=== PATIENT | male | born 1955 | race Caucasian/White ===

== ENCOUNTER 2020-01-30 08:22 | Emergency (ER) | payer MEDICAID ==
[~2020-01-30] VITALS: Ht 172.7 cm; Wt 79.4 kg
[2020-01-30 08:22] VITALS: BP_SYST 180
--- NOTE | 2020-01-30 08:22 | NUR ---
placed in bed 2, traiged at bedside, bib sq 154 from home
--- NOTE | 2020-01-30 08:22 | NUR ---
Dr. Edmondson at bedside examining pt
[2020-01-30] MEDS ORDERED: ROCURONIUM BROMIDE 10 MG/ML (ZEMURON) IV ONE (08:23)
[2020-01-30] MEDS ORDERED: ETOMIDATE 20 MG/ 10 ML VIAL (AMIDATE) IVP ONE (08:23)
--- NOTE | 2020-01-30 08:25 | NUR ---
Pt bib EMS from home with c/o dizziness and diarrhea x3 days. Reports this is an ongoing problem and he's been trying to get an MRI through his primary. V/S stable, pt is afebrile. Currently resting in bed, will continue to monitor.
[2020-01-30] MEDS ORDERED: NACL 0.9% 1,000 ML IV ONE ×2 (08:45→11:45)
[2020-01-30] MEDS ORDERED: MECLIZINE HCL 25 MG TABLET (ANITVERT) PO ONE (08:45)
--- NOTE | 2020-01-30 08:55 | NUR ---
Lab at bedside for blood draw,
[2020-01-30 09:06] LABS: BASOPHILS % (AUTO) 0.7 % (0.0-2.0); EOSINOPHILS # (AUTO) 0.1 K/uL (0.0-0.4); EOSINOPHILS % (AUTO) 1.2 % (0.0-4.0); HEMATOCRIT 40.6 % (36-54); HEMOGLOBIN 13.8 g/dL (14.0-18.0); LYMPHOCYTES # (AUTO) 0.8 K/uL (1.0-5.5); LYMPHOCYTES % (AUTO) 18.2 % (20.5-51.5); MEAN CORPUSCULAR HEMOGLOBIN 30 pg (27-31); MEAN CORPUSCULAR HGB CONC 34 % (32-36); MEAN CORPUSCULAR VOLUME 88 fL (79.0-98.0); MONOCYTES # (AUTO) 0.3 K/uL (0.0-1.0); MONOCYTES % (AUTO) 6.3 % (1.7-9.3); NEUTROPHILS # (AUTO) 3.4 K/uL (1.8-7.7); NEUTROPHILS % (AUTO) 73.6 % (40.0-70.0); PLATELET COUNT (AUTO) 162 K/uL (130-430); WHITE BLOOD COUNT (AUTO) 4.7 K/uL (4.8-10.8)
[2020-01-30 09:25] LABS: CALCIUM 8.9 mg/dL (8.4-11.0); CREATININE 0.66 mg/dL (0.55-1.30); POTASSIUM 3.7 mmol/L (3.5-5.1)
[2020-01-30 09:31] LABS: ALBUMIN 3.9 g/dL (3.4-4.8)
--- NOTE | 2020-01-30 09:48 | NUR ---
CT consent signed by patient.
--- NOTE | 2020-01-30 09:51 | NUR ---
Radiology at bedside for CXR.
[2020-01-30] MEDS ORDERED: IOHEXOL 350 mgI/mL, 150 ML INFUS..BTL IV ONE (10:03)
[2020-01-30] MEDS ORDERED: ONDANSETRON HCL 4 MG/2 ML VIAL IVP ONE (10:30)
--- NOTE | 2020-01-30 11:24 | NUR ---
Care of patient endorsed to PAVEL Erazo. Pt currently in CT.
--- NOTE | 2020-01-30 11:30 | NUR ---
NICKO TO ASSUME CARE. PLACED IN ADULT BRIEF. LOOSE STOOLS, LINEN CHANGE
--- NOTE | 2020-01-30 11:46 | NUR ---
DR JOSE IN TO ASSESS
--- NOTE | 2020-01-30 12:28 | NUR ---
Notified ED Admitting of pt admission/transfer. Will contact assistant store manager sales.
[2020-01-30] MEDS ORDERED: metroNIDAZOLE 500 MG TABLET PO ONE (12:30)
[2020-01-30] MEDS ORDERED: CIPROFLOXACIN HCL 500 MG TABLET PO ONE (12:30)
[2020-01-30] MEDS ORDERED: CIPROFLOXACIN HCL 500 MG TABLET ONE (13:45)
--- NOTE | 2020-01-30 13:46 | NUR ---
TOLERATING PO WELL. RESP UNLABORED, SKIN WARM AND DRY
[2020-01-30 15:30] VITALS: BP_SYST 141
--- NOTE | 2020-01-30 15:30 | NUR ---
Patient given written and verbal discharge instructions and verbalizes understanding. ER MD discussed with patient the results and treatment provided. Patient in stable condition. ID arm band removed. IV catheter removed intact and dressing applied, no active bleeding. Patient educated on pain management and to follow up with PMD. Pain Scale 0/10 Opportunity for questions provided and answered.
--- NOTE | 2020-01-31 15:47 | NUR ---
SPOKE WITH PT. PER DR. COLLINS REQUEST TO ADVISED PT TO F/U WITH NEUROSURGEON GABRIEL PT STATES HE WILL F/U WITH HIS NEUROLOGIST I ADVISED HIM TO SEEK TX GABRIEL .
== END 2020-01-30 15:30 | disposition home or self-care (01) ==
LOC: SED 08:22
DX: R42 Dizziness and giddiness (principal); E11.9 Type 2 diabetes mellitus without complications; R11.2 Nausea with vomiting, unspecified
CPT/HCPCS: 36415; 36600; 70450; 70496; 70498; 71045; 76376; 80053; 82803; 84484; 85025; 93005; 96361; 96374; 99285; J2405; J3490; J7030; J8597; Q9967

== ENCOUNTER 2021-07-17 23:28 | Inpatient (IN) | payer MEDICAID ==
[~2021-07-17] VITALS: Ht 175.3 cm; Wt 72.6 kg
[2021-07-17 23:30] VITALS: BP_SYST 169
[2021-07-18] MEDS ORDERED: ASPIRIN 81 MG TAB.CHEW PO ONE
[2021-07-18] MEDS ORDERED: CALC215T PO (00:10)
[2021-07-18] MEDS ORDERED: METF-379 PO (00:10)
[2021-07-18] MEDS ORDERED: NOVOLOG SUBCUT (00:10)
[2021-07-18] MEDS ORDERED: INSU100V11 SQ (00:10)
[2021-07-18] MEDS ORDERED: SSNOVOLOG SUBCUT (00:10)
[2021-07-18] MEDS ORDERED: FERROUS SULFATE PO (00:10)
[2021-07-18] MEDS ORDERED: TRAM50TA PO (00:10)
[2021-07-18] MEDS ORDERED: BENZ100C92 PO (00:10)
[2021-07-18] MEDS ORDERED: HYDR-3917 PO (00:10)
[2021-07-18] MEDS ORDERED: ALPR0.5T PO (00:10)
--- NOTE | 2021-07-18 00:15 | NUR ---
Placed in room 06 . Placed on satellite project site monitor, blood pressure machine and pulse oximeter. To gown for exam. Side rails up. Report given to PAVEL COOPER
[2021-07-18 00:24] LABS: EOSINOPHILS % (AUTO) 0.1 % (0.0-4.0); LYMPHOCYTES # (AUTO) 0.4 K/uL (1.0-5.5); MONOCYTES # (AUTO) 0.9 K/uL (0.0-1.0)
[2021-07-18 00:30] LABS: ANION GAP 10 (5-15); CALCIUM 8.3 mg/dL (8.4-11.0); CHLORIDE 101 mmol/L (98-107); CREATININE 0.89 mg/dL (0.55-1.30); GLUCOSE 208 mg/dL (70-99); POTASSIUM 4.3 mmol/L (3.5-5.1); SODIUM SERUM 137 mmol/L (136-145); UREA NITROGEN, BLOOD 26 mg/dL (8-21)
--- NOTE | 2021-07-18 00:30 | NUR ---
PT BIBA from home with c/o with SOB that started at around noon. Pt denies any chest pain, and N/V. Pt arrived on 10 NRB with O2 at 98%, P:104, and tachypnic. Pt is A&O x 4, and following simple commands. PT has a history of DM, anxiety, cellulitis, HTN, and UTI. Pt has diabetic ulcers on both legs. Safety precautions in place and pt connected to monitor.
[2021-07-18 00:31] LABS: BASOPHILS % (AUTO) 0.3 % (0.0-2.0)
[2021-07-18 00:35] LABS: BASOPHILS # (AUTO) 0.1 K/uL (0.0-0.2); HEMATOCRIT 27.8 % (36-54); LYMPHOCYTES % (AUTO) 2.7 % (20.5-51.5); MEAN CORPUSCULAR HEMOGLOBIN 26 pg (27-31); MEAN CORPUSCULAR HGB CONC 33 % (32-36); MEAN CORPUSCULAR VOLUME 79 fL (79.0-98.0); MONOCYTES % (AUTO) 6.2 % (1.7-9.3); NEUTROPHILS # (AUTO) 13.6 K/uL (1.8-7.7); NEUTROPHILS % (AUTO) 90.7 % (40.0-70.0); PLATELET COUNT (AUTO) 275 K/uL (130-430); RED BLOOD CELL COUNT(AUTO) 3.51 MIL/uL (4.2-6.2); RED CELL DISTRIBUTION WIDTH 15.7 % (9.0-15.0)
[2021-07-18 00:39] LABS: ALANINE AMINOTRANSFERASE 19 U/L (12-78); ALBUMIN 2.4 g/dL (3.4-4.8); ASPARTATE AMINOTRANSFERASE 24 U/L (10-37); TOTAL BILIRUBIN 0.3 mg/dL (0.0-1.0)
[2021-07-18 00:45] LABS: GFR AFRICAN AMERICAN 111 mL/min (>90)
[2021-07-18 00:55] LABS: PROTHROMBIN TIME 9.7 SECS (9.5-12.5)
[2021-07-18] MEDS ORDERED: PIPERACILLIN/TAZO 3.375 GM in NS 50 ML IV ONE (01:15)
[2021-07-18] MEDS ORDERED: AZITHROMYCIN 500 MG in NS 250 ML IV ONE (01:15)
[2021-07-18] MEDS ORDERED: ACETAMINOPHEN 500 MG TABLET PO ONE (01:15)
[2021-07-18] MEDS ORDERED: AZITHROMYCIN 500 MG/VIAL (ZITHROMAX) IV ONE ×2 (01:33→02:23)
--- NOTE | 2021-07-18 01:37 | NUR ---
PT REFUSING TO HAVE IV INSERTED WITH IV ANTIBIOTICS, DR TIMMONS INFORMED. DR TIMMONS AT BEDSIDE AND SPEAKING WITH PT ABOUT THE CONSEQUENCES OF GOING AMA. PT BEING VERY ARGUMENATIVE AND NOT ALLOWING US TO GIVE HIM DETAILS.
[2021-07-18] MEDS ORDERED: PIPERACILLIN/TAZOBACTAM 3.375 GM/VIAL (ZOSYN) IV ONE (02:08)
[2021-07-18 02:37] LABS: BILIRUBIN,URINE NEGATIVE (NEGATIVE); BLOOD, URINE 1+ (NEGATIVE); CLARITY/URINE CLEAR (CLEAR); COLOR,URINE YELLOW (YELLOW); GLUCOSE,URINE NEGATIVE (NEGATIVE); KETONES,URINE NEGATIVE (NEGATIVE); LEUKOCYTE ESTERASE ,URINE NEGATIVE (NEGATIVE); NITRITE, URINE NEGATIVE (NEGATIVE); PH,URINE 5.5 (5.0-8.0); PROTEIN URINE 3+ (NEGATIVE); UROBILINOGEN,URINE 0.2 (0.2-1.0)
[2021-07-18 02:51] LABS: BACTERIA,URINE MODERATE /HPF (None Seen); WBC,URINE 0-3 /HPF (0-3)
--- NOTE | 2021-07-18 04:41 | NUR ---
Pt in bed resting with eyes closed. No signs of resp distress. Pt O2 sat 94% on NC at 4L
--- NOTE | 2021-07-18 04:51 | NUR ---
Admit bed requested Patient will be admitted to care of Dr.A MARQUEZ. Admitted to TELE unit. Diagnosis PNA,PLEURAL EFFUSION Inpatient (Yes or No) YES Observation (Yes or No) NO Orientation concerns or request close to nursing station (Yes or No) NO Covid Status NEGATIVE On vent or bipap NO Isolation requirements NO Needs a sitter NO From Home (Yes or if No enter name of facility) [facility] Requires Dialysis (Yes or No) NO Med Rec Completed (Yes of No) YES
--- NOTE | 2021-07-18 05:05 | NUR ---
Urine collected and walked over to lab.
--- NOTE | 2021-07-18 07:21 | NUR ---
Report received from Mackenzie ZHAO to assume care of patient
--- NOTE | 2021-07-18 08:00 | NUR ---
Pt alert and oriented, hard of hearing. Resting in bed. NAD noted. VSS on c d still operator. Awaiting tele bed placement. Informed of treatment plan moving forward. Understanding verbalized.
--- NOTE | 2021-07-18 08:26 | NUR ---
CONSULTATION PAGED REASON FOR CONSULTATION:PNEUMONIA PLEURAL FUSION WAS CONSULT CALLED?Y PERSON WHO WAS NOTIFIED:DR.ZAIDI GARCIA CONSULTING PHYSICIAN:NICKOLAS PERALES FREIGHT BRAKE OPERATOR SPECIALTY:PULMONARY FREIGHT BRAKE OPERATOR PHONE NUMBER:[phone] REQUESTING PHYSICIAN:DEJON DUARTE
--- NOTE | 2021-07-18 08:35 | NUR ---
Pt transported to [facility]A via [facility] with RN. Report given at bedside.
[2021-07-18 10:20] VITALS: BP_SYST 125
[2021-07-18] MEDS ORDERED: ONDANSETRON HCL 4 MG/2 ML VIAL IVP PRN (11:15)
[2021-07-18] MEDS ORDERED: NALOXONE HCL 0.4 MG/ML AMP (NARCAN) IVP PRN (11:15)
[2021-07-18] MEDS ORDERED: ACETAMINOPHEN 325 MG TABLET PO PRN (11:15)
[2021-07-18] MEDS ORDERED: HYDROcodone/ACETAMIN 5-325 MG TAB (NORCO/ VICODIN) PO PRN (11:15)
[2021-07-18] MEDS ORDERED: ALPRAZolam 0.25 MG TABLET PO PRN (11:15)
[2021-07-18] MEDS ORDERED: IPRATROPIUM BROM 0.5 MG/2.5 ML VIAL.NEB (ATROVENT) INH PRN (11:15)
[2021-07-18] MEDS ORDERED: traMADol HCL HCL 50 MG TABLET (ULTRAM) PO PRN (11:15)
[2021-07-18] MEDS ORDERED: ALBUTEROL SULFATE 0.083% 2.5 MG/3 ML VIAL.NEB INH PRN (11:15)
--- NOTE | 2021-07-18 11:20 | NUR ---
CONSULTATION PAGED REASON FOR CONSULTATION:ELEVATED TROPONIN WAS CONSULT CALLED?Y PERSON WHO WAS NOTIFIED:DWIGHT CONSULTING PHYSICIAN:PAULINO DUARTE BAND SINGER SPECIALTY:CARDIO BAND SINGER PHONE NUMBER:[phone] REQUESTING PHYSICIAN:DEJON DUARTE
--- NOTE | 2021-07-18 11:31 | NUR ---
CONSULTATION PAGED REASON FOR CONSULTATION:PNEUMONIA WAS CONSULT CALLED?Y PERSON WHO WAS NOTIFIED:JURGEN CONSULTING PHYSICIAN:LAUREL SNIDER OPTICAL GOODS WORKER SPECIALTY:INFECTIOUS DISEASE OPTICAL GOODS WORKER PHONE NUMBER:[phone] REQUESTING PHYSICIAN:DEJON DUARTE
[2021-07-18] MEDS ORDERED: DEXTROSE 50%-WATER 50 ML DISP.SYRIN IVP PRN (11:45)
[2021-07-18] MEDS ORDERED: D5W 1,000 ML IV PRN (11:45)
[2021-07-18] MEDS ORDERED: CALCIUM CARBONATE 500 MG/ TAB.CHEW PO PRN (11:45)
[2021-07-18] MEDS ORDERED: GLUCOSE (DEXTROSE) ORAL GEL -Adults PO PRN (11:45)
[2021-07-18] MEDS ORDERED: metFORMIN HCL 500 MG TABLET PO SCH ×3 (12:00→18:00)
[2021-07-18] MEDS: PIPERACILLIN/TAZO 3.375/DEX-IS 50 ML IV SCH ×4 (12:00→23:24)
[2021-07-18 12:24] VITALS: BP_SYST 130
[2021-07-18] MEDS: INSULIN REGULAR, HUMAN 100 UNITS/ML, 10 ML VIAL (humuLIN R) SUBCUT PRN (12:49)
[2021-07-18] MEDS ORDERED: NORMAL SALINE 5 ML DISP.SYRIN IVF SCH (14:00)
[2021-07-18] MEDS ORDERED: BENZONATATE 100 MG CAPSULE (TESSALON) PO PRN (14:00)
[2021-07-18] MEDS: NORMAL SALINE 5 ML DISP.SYRIN IVF SCH ×2 (14:01→21:14)
[2021-07-18 14:53] VITALS: BP_SYST 132
[2021-07-18] MEDS ORDERED: BALSAM PERU/CASTOR OIL 56.7 GM OINT...G. TP ONE (15:30)
--- NOTE | 2021-07-18 16:00 | NUR ---
WOUND EVALUATION: Wound Consult received from Dr. Hector Tristan. Thank you, Dr. Tristan, for the consult. Patient received in a Ricci Bed with an IsoFlex IRENE mattress, awake, alert, and oriented. Patient is unable to turn in bed independently. Yunier Score is a 15. Past Medical History: Diabetes Mellitus, Chronic Lower Extremity Ulcers. Admitted for shortness of breath, along with Bilateral Lower Extremity Edema and Scrotal Edema for the past few weeks. Recent Labs: WBC 15.0, RBC 3.51, hemoglobin 9.0, hematocrit 27.8, BUN 26, creatinine 0.89, GFR 91, glucose 208, POC glucose 157, calcium 8.3, BNP 302, albumin 2.4, PTT 23.9, D-dimer 911. Microbiology: Blood culture results x2 in progress. Urine culture results in progress. MRSA screen results positive. Intrinsic factors that delay wound healing: Diabetes Mellitus, Hypoalbuminemia, chronic vascular ulcers and edema of bilateral lower extremities. Extrinsic factors that delay wound healing: Decreased mobility. Wound Assessment: 1. Right Mid Anterior Lower Extremity, Inferior to Knee: Venous ulcer with possible arterial involvement, present on admission. Wound bed has 80% yellow slough, 20% pink tissue. Mild odor, scant yellow sanguineous drainage. Periwound intact. Extremity inferior to knee is cold to the touch and has 4+ pitting firm edema. Wound measures 8.7 cm x 6.5 cm x 0.3 cm. 2. Right Mid Anterior Lateral Lower Extremity, Inferior to Site 1: Venous ulcer with possible arterial involvement, present on admission. Wound bed has 80% yellow slough, 15% pink tissue, 5% red tissue. Moderate odor, moderate yellow drainage. Periwound intact. Extremity inferior to knee is cold to the touch and has 4+ pitting firm edema. Wound measures 11.0 cm x 18.0 cm x 0.4 cm. Recommend: Cleanse wounds with normal saline. Apply moisture barrier cream to alexis-wounds. Apply Venelex ointment to wound beds. Cover wounds with non-adhesive foam dressings. Place ABD pad on wound site 2. Wrap with Negar wrap. Wrap extremity with elastic bandage from just above toes to just below knee with 50% overlap. Do not apply too much pressure. Perform wound care daily, and as needed for dressing soiling or dislodgement. 3. Right Dorsal Foot: Chronic Vascular Ulcer, present on admission. Wound bed has 100% black eschar. No odor, no drainage. Periwound intact. Foot is cold to the touch and has mild non-pitting edema. Wound measures 0.8 cm x 1.9 cm. 4. Right Anterior Medial Hallux: Chronic wound, present on admission. Wound bed has 90% yellow eschar, 10% black eschar. No odor, no drainage. Periwound intact. Foot is cold to the touch and has mild non-pitting edema. Wound measures 0.7 cm x 0.9 cm. Recommend: [place] wound sites with Betadine. Allow to air dry. Cover sites with adhesive 4 x 4 dressings. Include these sites with the Negar wrap and elastic bandage from Wound sites 1 and 2. 5. Left Posterior Heel: Chronic unstageable pressure ulcer, present on admission. Wound bed has 100% yellow eschar. No odor, no drainage. Periwound intact. Foot and extremity inferior to knee are cold to the touch. Foot is cold to the touch and has mild non-pitting edema. Wound measures 0.5 cm x 0.8 cm. 6. Left Anterior Medial Hallux: Chronic vascular ulcer, present on admission. Wound bed has 100% black eschar. No odor, no drainage. Periwound intact. Surrounding tissue has nonblanchable red tissue. Foot is cold to the touch and has mild non-pitting edema. Wound measures 0.5 cm x 0.7 cm. 7. Left Anterior Second Toe: Chronic vascular ulcer, present on admission. Wound bed has 100% brown eschar. No odor, no drainage. Periwound intact. Foot is cold to the touch and has mild non-pitting edema. Wound measures 0.5 cm x 0.4 cm. 8. Left Anterior Second Toe, Distal to Site 7: Chronic vascular ulcer, present on admission. Wound bed has 100% brown eschar. No odor, no drainage. Periwound intact. Foot is cold to the touch and has mild non-pitting edema. Wound measures 0.3 cm x 0.3 cm. Recommend: [place] wound beds with Betadine. Allow to air dry. Cover sites with adhesive 4 x 4 dressings. Wrap with Negar wrap. Wrap extremity with elastic bandage from just above toes to just below knee with 50% overlap. Do not apply too much pressure. Perform wound care daily, and as needed for dressing soiling or dislodgement. Also recommend: Encourage and assist patient as needed with repositioning every 2 hours with pillow support and off-load pressure areas with pillows for pressure re-distribution. Offload, elevate and float bilateral heels with pillows. Elevate bilateral lower extremities as tolerated. Perform skin care and monitor skin integrity Q shift. Use moisture barrier cream on buttocks and other moisture susceptible areas QID and as needed for soiling. Place patient on a low air-loss mattress.
[2021-07-18 16:19] VITALS: BP_SYST 148
[2021-07-18] MEDS: FERROUS SULFATE 325 MG TABLET.DR PO SCH (17:06)
--- NOTE | 2021-07-18 17:28 | NUR ---
Patient was transferred from ED around 08:30. patient was stable, vitals taken, patient situated to room. 4 eye skin check done with charge Nurse. Patient has RLE venous/diabetic ulcers, pictures taken, seen by wound care nurse, wound care orders places and followed.
--- NOTE | 2021-07-18 19:58 | NUR ---
CARLEEN BANKS I SPOKE WITH ANASTASIIA
[2021-07-18 20:00] VITALS: BP_SYST 150
[2021-07-18] MEDS: INSULIN GLARGINE 100 UNITS/ML 10 ML VIAL SUBCUT SCH (21:13)
[2021-07-19] VITALS (30 sets, daily range): BP systolic 110–166
--- NOTE | 2021-07-19 02:38 | NUR ---
pLACED CALL TO FLOYD MEDINA, PATIENT DAUGHTER TO NOTIFY OF PATIENT CONDITION AND TRANSFER TO ICU. NO ANSWER. MESSAGE LEFT TO CALL [phone] THE UTILITY PIPE LAYER PHONE.
--- NOTE | 2021-07-19 03:02 | NUR ---
0204 -0245 AM : USABILITY ENGINEER CALLED BECAUSE HEART RATE WAS DROP, CHECKED THE PATIENT, PT WAS FOUND UNRESPONSIVE, PALED AND SATING IN 75%, CALLED CODE BLUE, CALLED THE DOCTOR AND LEFT MESSAGE TO FAMILY. PT WAS TRANSFERRED TO ICU.
--- NOTE | 2021-07-19 03:05 | NUR ---
ICU ADMIT Patient transferred from tele after code blue. Patient on the vent, ST on monitor. RT at bedside. Patient came with blanket from home. Safety precautions in place, report given bedside. Will continue to monitor.
--- NOTE | 2021-07-19 03:40 | NUR ---
PAGE TO DR. OAKLEY.
--- NOTE | 2021-07-19 04:10 | NUR ---
SECOND PAGE TO DR. CELE REYNOSO MADE AWARE OF PATIENTS CURRENT STATUS. NEW ORDERS GIVEN, WILL CARRY OUT.
[2021-07-19] MEDS ORDERED: NACL 0.9% 1,000 ML IV SCH (04:15)
[2021-07-19] MEDS: PROPOFOL DRIP 100 ML IV PRN ×2 (04:46→10:52)
[2021-07-19 05:36] LABS: RED CELL DISTRIBUTION WIDTH 15.4 % (9.0-15.0)
[2021-07-19 05:47] LABS: BASOPHILS % (AUTO) 0.2 % (0.0-2.0); LYMPHOCYTES # (AUTO) 0.3 K/uL (1.0-5.5); LYMPHOCYTES % (AUTO) 2.6 % (20.5-51.5); MEAN CORPUSCULAR HEMOGLOBIN 26 pg (27-31); MEAN CORPUSCULAR HGB CONC 33 % (32-36); MEAN CORPUSCULAR VOLUME 79 fL (79.0-98.0); MONOCYTES # (AUTO) 1.1 K/uL (0.0-1.0); MONOCYTES % (AUTO) 7.9 % (1.7-9.3); NEUTROPHILS # (AUTO) 11.8 K/uL (1.8-7.7); NEUTROPHILS % (AUTO) 89.3 % (40.0-70.0); PLATELET COUNT (AUTO) 171 K/uL (130-430); RED BLOOD CELL COUNT(AUTO) 2.72 MIL/uL (4.2-6.2); WHITE BLOOD COUNT (AUTO) 13.2 K/uL (4.8-10.8)
[2021-07-19 05:51] LABS: C-REACTIVE PROTEIN QUANT 17.6 mg/dL (0-0.5); CREATININE 1.51 mg/dL (0.55-1.30); PHOSPHORUS 6.1 mg/dL (2.7-4.5); POTASSIUM 4.6 mmol/L (3.5-5.1)
[2021-07-19 05:52] LABS: HEMATOCRIT 21.4 % (36-54)
[2021-07-19] MEDS: NORMAL SALINE 5 ML DISP.SYRIN IVF SCH ×3 (06:00→23:12)
[2021-07-19] MEDS: PIPERACILLIN/TAZO 3.375/DEX-IS 50 ML IV SCH ×2 (06:32→13:55)
--- NOTE | 2021-07-19 06:50 | NUR ---
DR. OAKLEY HERE TO SEE PATIENT.
--- NOTE | 2021-07-19 07:12 | NUR ---
PATIENTS DAUGHTER HERE TO SEE PATIENT. UPDATE GIVEN.
[2021-07-19] MEDS ORDERED: NS 1000 ML IV.SOLN IV ONE (07:15)
[2021-07-19] MEDS ORDERED: SODIUM BICARBONATE 8.4% JECT 50 MEQ/50 ML SYRINGE ONE (07:15)
[2021-07-19] MEDS ORDERED: EPINEPHrine JECT 0.1 MG/ML SYR ONE (07:15)
--- NOTE | 2021-07-19 07:15 | NUR ---
ENDORSEMENT PATIENT CARE ENDORSED TO PAVEL PEREZ USING NURSING SBAR.
[2021-07-19] MEDS ORDERED: PANTOPRAZOLE SODIUM 40 MG/VIAL (PROTONIX) IVP ONE (07:45)
[2021-07-19] MEDS ORDERED: FUROSEMIDE 40 MG/4 ML VIAL IVP ONE (07:45)
[2021-07-19] MEDS: FERROUS SULFATE 325 MG TABLET.DR PO SCH ×2 (08:00→17:34)
[2021-07-19] MEDS ORDERED: FUROSEMIDE 40 MG/4 ML VIAL IVP SCH (09:00)
[2021-07-19] MEDS: PANTOPRAZOLE SODIUM 40 MG/VIAL (PROTONIX) IVP SCH ×2 (09:00→21:32)
[2021-07-19] MEDS: BALSAM PERU/CASTOR OIL 56.7 GM OINT...G. TP SCH ×2 (09:00→15:41)
--- NOTE | 2021-07-19 09:18 | NUR ---
PAGECLOTILDE BLOUNT ORDERING PHY: DR. MARQUEZ REASON FOR CONSULT: SCROTAL EDEMA DIALED: [phone] SPOKE TO: IMELDA
[2021-07-19 09:29] LABS: ERYTHROCYTE SEDIMENTATION RATE 64 MM/HR (0-15)
--- NOTE | 2021-07-19 09:55 | NUR ---
RT NOTES FIO2 TO 0.40. WILL MONITOR PT.
--- NOTE | 2021-07-19 10:00 | NUR ---
patient daughter( araceli) at the bedside, updated patient current condition and poc. able to speak with pulmo ( Julito) and internal medicine ( Azalea )
--- NOTE | 2021-07-19 11:30 | NUR ---
[place] CATH: KALLI JANG ( UROLOGIST)PLACED # 16 FR coude [place] catheter with 10 cc bulb inserted with use of sterile technique. Bulb inflated with 10 cc sterile water. Immediate return of 1900 cc dark yellow urine noted. Bedside drainage bag placed below level of bladder. Urine sample collected and sent to lab . Pt tolerated procedure well. Addendum: 07/19/21 at 1248 by Max Melendez RN # 18 english coude catheter.
--- NOTE | 2021-07-19 11:39 | NUR ---
NOTIFIED OF CONSULT ORDERING PHY: DR. MARQUEZ REASON FOR CONSULT: ADRIAN DIALED: [phone] SPOKE TO: PRESLEY
--- NOTE | 2021-07-19 11:43 | NUR ---
NOTIFIED OF CONSULT DR.PALIWAL Phillips ORDERING PHY: DR. ALMA Matthews REASON FOR CONSULT: CARDIAC ARREST DIALED: [phone] SPOKE TO: MAY
[2021-07-19 12:10] LABS: BILIRUBIN,URINE NEGATIVE (NEGATIVE); BLOOD, URINE 2+ (NEGATIVE); CLARITY/URINE CLEAR (CLEAR); COLOR,URINE YELLOW (YELLOW); GLUCOSE,URINE NEGATIVE (NEGATIVE); KETONES,URINE NEGATIVE (NEGATIVE); LEUKOCYTE ESTERASE ,URINE NEGATIVE (NEGATIVE); NITRITE, URINE NEGATIVE (NEGATIVE); PH,URINE 5.5 (5.0-8.0); PROTEIN URINE 3+ (NEGATIVE); UROBILINOGEN,URINE 0.2 (0.2-1.0)
[2021-07-19 12:33] LABS: BACTERIA,URINE MODERATE /HPF (None Seen)
[2021-07-19 12:34] LABS: URINE AMORPHOUS URATE 1+ /HPF (None Seen)
--- NOTE | 2021-07-19 12:47 | NUR ---
OG TUBE PLACEMENT: # 16 FR NG tube placed to oral . Placement checked by auscultation of instilled air into stomach and aspiration of gastric contents.Tubing taped in place to prevent dislodging. Patient tolerated well.
--- NOTE | 2021-07-19 13:00 | NUR ---
RT NOTES Transported pt. to and from CT with 100% O2 via resus. bag to ETT. A/w remains secure/patent. Sat remained in the high 90s. Placed pt back on vent with same settings.
--- NOTE | 2021-07-19 13:30 | NUR ---
CT scan of Head done. patient become agitated, titrate diprivan 30mcg/kg/min. oral suction provided.
[2021-07-19] MEDS: AZITHROMYCIN 500 MG in NS 250 ML IV SCH (14:58)
--- NOTE | 2021-07-19 15:47 | NUR ---
Suggest wounds be cleaned with wound cleanser, apply a thin coat of venelex and apply foam dressing, apply kerlix and nicolasa bandage as secondary dressing every [address] hours. photos taken and place at the chart.
--- NOTE | 2021-07-19 16:17 | NUR ---
air mattress placed.
--- NOTE | 2021-07-19 19:00 | NUR ---
POST SCROTAL ULTRASOUND PATIENT URINE BECOME PINKISH, NO CLOTS NOTED.
--- NOTE | 2021-07-19 19:14 | NUR ---
Received report from Irais ZHAO. Patient is bed with ETT connected to vent. Tolerated well. No respiratory issues. SUction as needed. HOB elevated for aspiration precautions. Skin is warm to touch. Patient is still NPO at this time. Vital signs stable. Not in any distress. Still on Propofol at 30 mcg/kg/min. Will continue to monitor.
--- NOTE | 2021-07-19 19:23 | NUR ---
NOTES: BEDSIDE REPORT GIVEN TO ROSE RN. PT STABLE CONDITION, NO DISTRESS, TOLERATING VENT , VENT SETTING AC 16, TV 500, FIO2 40% PEEP 5. SATURATION 98%.
[2021-07-19] MEDS: MUPIROCIN 2% TOPICAL OINTMENT 22 GM TP SCH (21:04)
[2021-07-19] MEDS: INSULIN GLARGINE 100 UNITS/ML 10 ML VIAL SUBCUT SCH (21:33)
[2021-07-20] VITALS (36 sets, daily range): BP systolic 119–168
[2021-07-20] MEDS: PROPOFOL DRIP 100 ML IV PRN ×3 (00:37→15:21)
[2021-07-20] MEDS: NORMAL SALINE 5 ML DISP.SYRIN IVF SCH ×3 (05:22→21:44)
[2021-07-20] MEDS: PIPERACILLIN/TAZO 3.375/DEX-IS 50 ML IV SCH ×2 (05:22)
[2021-07-20 06:32] LABS: BASOPHILS % (AUTO) 0.3 % (0.0-2.0); HEMATOCRIT 23.1 % (36-54); HEMOGLOBIN 7.8 g/dL (14.0-18.0); LYMPHOCYTES # (AUTO) 0.8 K/uL (1.0-5.5); MEAN CORPUSCULAR HEMOGLOBIN 26 pg (27-31); MEAN CORPUSCULAR HGB CONC 34 % (32-36); MEAN CORPUSCULAR VOLUME 78 fL (79.0-98.0); MONOCYTES # (AUTO) 1.2 K/uL (0.0-1.0); MONOCYTES % (AUTO) 11.7 % (1.7-9.3); NEUTROPHILS # (AUTO) 8.4 K/uL (1.8-7.7); PLATELET COUNT (AUTO) 194 K/uL (130-430); RED BLOOD CELL COUNT(AUTO) 2.96 MIL/uL (4.2-6.2); RED CELL DISTRIBUTION WIDTH 15.7 % (9.0-15.0); WHITE BLOOD COUNT (AUTO) 10.5 K/uL (4.8-10.8)
[2021-07-20 06:50] LABS: C-REACTIVE PROTEIN QUANT 15.1 mg/dL (0-0.5); CALCIUM 7.3 mg/dL (8.4-11.0); CREATININE 1.9 mg/dL (0.55-1.30); POTASSIUM 3.5 mmol/L (3.5-5.1)
[2021-07-20 07:14] LABS: PHOSPHORUS 5.2 mg/dL (2.7-4.5)
--- NOTE | 2021-07-20 07:21 | NUR ---
REPORT GIVEN TO PAVEL PENA AT BEDSIDE. DR. DUTTA SEEN THE PATIENT AND NO FURTHER RECOMMENDATIONS. DIETARY CONSULT ORDERED FOR TUBE FEEDING RECOMMENDATIONS
[2021-07-20] MEDS: FERROUS SULFATE 325 MG TABLET.DR PO SCH ×2 (08:26→17:46)
[2021-07-20] MEDS: PANTOPRAZOLE SODIUM 40 MG/VIAL (PROTONIX) IVP SCH ×2 (08:26→20:50)
[2021-07-20] MEDS: MUPIROCIN 2% TOPICAL OINTMENT 22 GM TP SCH ×2 (08:29→20:50)
--- NOTE | 2021-07-20 10:07 | NUR ---
FAMILY FLOYD, PT'S DAUGHTER CALLED. UPDATE GIVEN ON HER FATHER'S PRESENT CONDITION.
[2021-07-20 11:58] LABS: ERYTHROCYTE SEDIMENTATION RATE 67 MM/HR (0-15)
[2021-07-20] MEDS: CLINDAMYCIN 300 MG in D5W 50 ML IV SCH ×3 (13:16→23:52)
--- NOTE | 2021-07-20 13:30 | NUR ---
Dietitian Recommendations * Glucerna 1.5 at 35 ml/hr (goal), Prosource daily, Riky BID, Free Water Flush: 200 ml Q4h via OGT Provides (w/ current propofol infusion rate): 1845 kcal/day, 89 gm protein/day, and 1838 ml free water/day Meets (w/ current propofol infusion rate): 101% of estimated caloric needs, 94% of lower end of estimated protein needs, and 102% of estimated fluid needs LP, RD Please refer to Nutrition Assessment for details. Addendum: 07/20/21 at [address] Amended: Links added.
[2021-07-20] MEDS: AZITHROMYCIN 500 MG in NS 250 ML IV SCH (13:52)
--- NOTE | 2021-07-20 16:00 | NUR ---
GOLF TEACHER DR OAKLEY AT BEDSIDE, AND EXAMINED PT. PROPOFOL DRIP OFF AT THIS HOUR PER MD.
--- NOTE | 2021-07-20 18:20 | NUR ---
NEURO PT SEEN, BLINKS HIS EYES, NO TRACKING, SOME LIP MOTION OBSERVED.
--- NOTE | 2021-07-20 19:10 | NUR ---
Opening Notes: Received bed side report from Kezia. Patient is A&O X 0, on vent with settings of AC 16, 500, 40%, 5, has a OG tube with Glucerna running at 35 with free water flush every 4 hours of 200mL. Patient on contact precautions for MRSA in the nares. Patient has a everett with 150 mL flush every 2 hours. Patient buttocks are pink and has a leg wound that in covered and wrapped. Patient a femoral IV with NS running at 10 mL, left and right AC 20G saline locked. Bed is at the lowest level, brakes are locked, with appropriate side rails up.
[2021-07-20] MEDS: INSULIN GLARGINE 100 UNITS/ML 10 ML VIAL SUBCUT SCH (20:49)
[2021-07-21] VITALS (32 sets, daily range): BP systolic 148–177
[2021-07-21] MEDS: CLINDAMYCIN 300 MG in D5W 50 ML IV SCH ×3 (05:25→17:39)
[2021-07-21] MEDS: NORMAL SALINE 5 ML DISP.SYRIN IVF SCH ×3 (05:26→22:00)
--- NOTE | 2021-07-21 06:30 | NUR ---
Dr Vila at bedside. informed Dr. Vila the family would like him to call them for an update.
[2021-07-21 06:36] LABS: BASOPHILS % (AUTO) 0.2 % (0.0-2.0); EOSINOPHILS % (AUTO) 0.1 % (0.0-4.0); HEMATOCRIT 26.5 % (36-54); HEMOGLOBIN 8.8 g/dL (14.0-18.0); LYMPHOCYTES # (AUTO) 0.7 K/uL (1.0-5.5); LYMPHOCYTES % (AUTO) 8.6 % (20.5-51.5); MEAN CORPUSCULAR HEMOGLOBIN 26 pg (27-31); MEAN CORPUSCULAR HGB CONC 33 % (32-36); MEAN CORPUSCULAR VOLUME 79 fL (79.0-98.0); MONOCYTES # (AUTO) 0.8 K/uL (0.0-1.0); MONOCYTES % (AUTO) 10.9 % (1.7-9.3); NEUTROPHILS # (AUTO) 6.3 K/uL (1.8-7.7); NEUTROPHILS % (AUTO) 80.2 % (40.0-70.0); PLATELET COUNT (AUTO) 210 K/uL (130-430); RED BLOOD CELL COUNT(AUTO) 3.38 MIL/uL (4.2-6.2); RED CELL DISTRIBUTION WIDTH 15.6 % (9.0-15.0); WHITE BLOOD COUNT (AUTO) 7.8 K/uL (4.8-10.8)
[2021-07-21 07:06] LABS: ALBUMIN 1.7 g/dL (3.4-4.8); C-REACTIVE PROTEIN QUANT 8.1 mg/dL (0-0.5); CREATININE 1.75 mg/dL (0.55-1.30); PHOSPHORUS 4.3 mg/dL (2.7-4.5); TOTAL BILIRUBIN 0.1 mg/dL (0.0-1.0)
--- NOTE | 2021-07-21 07:20 | NUR ---
Endorsed patient to Kezia. Answered all questions at bedside.
--- NOTE | 2021-07-21 08:00 | NUR ---
AM ASSESSMENT PT MECHANICALLY INTUBATED, ORAL HYGIENE RENDERED, HIS EYES OPENED, NOT MAKING EYE CONTACT, SEDATION OFF SINCE YESTERDAY, RADIAL PULSES STRONG, ABDOMEN SOFT, HAD BOWEL MOVEMENT, BLACK LOOSE STOOL, INCONTINENT CARE DONE, FOAM DRESSING INTACT.
[2021-07-21] MEDS: FERROUS SULFATE 325 MG TABLET.DR PO SCH ×2 (08:13→17:38)
[2021-07-21] MEDS: PANTOPRAZOLE SODIUM 40 MG/VIAL (PROTONIX) IVP SCH ×2 (08:13→23:21)
[2021-07-21] MEDS: BALSAM PERU/CASTOR OIL 56.7 GM OINT...G. TP SCH (08:14)
[2021-07-21] MEDS: MUPIROCIN 2% TOPICAL OINTMENT 22 GM TP SCH ×2 (08:14→23:21)
--- NOTE | 2021-07-21 08:19 | NUR ---
MEDS PREMEDICATED PT WITH TYLENOL 650 MG TAB VIA G TUBE BEFORE WOUND CARE.
--- NOTE | 2021-07-21 09:51 | NUR ---
CONSULT DR Sally MARCH WAS CALLED FOR CONSULT RE ALOC. SPOKE WITH DONI .
[2021-07-21 11:35] LABS: ERYTHROCYTE SEDIMENTATION RATE 64 MM/HR (0-15)
[2021-07-21] MEDS: INSULIN REGULAR, HUMAN 100 UNITS/ML, 10 ML VIAL (humuLIN R) SUBCUT PRN ×2 (12:45→18:32)
--- NOTE | 2021-07-21 13:13 | NUR ---
FAMILY PT'S DAUGHTER FLOYD CALLED UP, UPDATE GIVEN ON PT'S STATUS.
[2021-07-21] MEDS: AZITHROMYCIN 500 MG in NS 250 ML IV SCH (14:10)
--- NOTE | 2021-07-21 16:30 | NUR ---
BLADDER IRRIGATION. URINE COLOR PINK TO CLEAR, WITH SMALL SEDIMENTS, IRRIGATED WITH 120 ML SALINE.
[2021-07-21] MEDS: INSULIN GLARGINE 100 UNITS/ML 10 ML VIAL SUBCUT SCH (23:25)
[2021-07-22] VITALS (28 sets, daily range): BP systolic 138–179
[2021-07-22] MEDS: CLINDAMYCIN 300 MG in D5W 50 ML IV SCH ×2 (03:43→06:57)
[2021-07-22] MEDS: NORMAL SALINE 5 ML DISP.SYRIN IVF SCH ×3 (06:42→21:52)
[2021-07-22 06:47] LABS: BASOPHILS % (AUTO) 0.4 % (0.0-2.0); EOSINOPHILS % (AUTO) 0.1 % (0.0-4.0); HEMATOCRIT 27.9 % (36-54); HEMOGLOBIN 9.3 g/dL (14.0-18.0); LYMPHOCYTES # (AUTO) 0.7 K/uL (1.0-5.5); LYMPHOCYTES % (AUTO) 9.1 % (20.5-51.5); MEAN CORPUSCULAR HEMOGLOBIN 26 pg (27-31); MEAN CORPUSCULAR HGB CONC 33 % (32-36); MEAN CORPUSCULAR VOLUME 78 fL (79.0-98.0); MONOCYTES # (AUTO) 0.9 K/uL (0.0-1.0); MONOCYTES % (AUTO) 11.4 % (1.7-9.3); NEUTROPHILS # (AUTO) 6.1 K/uL (1.8-7.7); PLATELET COUNT (AUTO) 246 K/uL (130-430); RED CELL DISTRIBUTION WIDTH 15.6 % (9.0-15.0); WHITE BLOOD COUNT (AUTO) 7.7 K/uL (4.8-10.8)
[2021-07-22 07:05] LABS: ALBUMIN 1.8 g/dL (3.4-4.8); C-REACTIVE PROTEIN QUANT 5.4 mg/dL (0-0.5); CALCIUM 7.1 mg/dL (8.4-11.0); CREATININE 1.63 mg/dL (0.55-1.30); PHOSPHORUS 3.5 mg/dL (2.7-4.5); TOTAL BILIRUBIN 0.1 mg/dL (0.0-1.0)
--- NOTE | 2021-07-22 07:28 | NUR ---
Report received from outgoing nurse and care assumed. See chart for assessment. [id number] Spolar
[2021-07-22 07:36] LABS: POTASSIUM 2.9 mmol/L (3.5-5.1)
--- NOTE | 2021-07-22 08:45 | NUR ---
Spoke to Dr. Tristan and notified of critical K level. Orders received and entered.
[2021-07-22 08:59] LABS: ERYTHROCYTE SEDIMENTATION RATE 68 MM/HR (0-15)
[2021-07-22] MEDS ORDERED: POTASSIUM CHLORIDE 20 MEQ/PKT PACKET GT ONE (09:00)
[2021-07-22] MEDS: FERROUS SULFATE 325 MG TABLET.DR PO SCH ×2 (09:46→18:03)
[2021-07-22] MEDS: PANTOPRAZOLE SODIUM 40 MG/VIAL (PROTONIX) IVP SCH ×2 (09:46→21:51)
[2021-07-22] MEDS: MUPIROCIN 2% TOPICAL OINTMENT 22 GM TP SCH ×2 (09:48→21:51)
[2021-07-22] MEDS: BALSAM PERU/CASTOR OIL 56.7 GM OINT...G. TP SCH (09:48)
--- NOTE | 2021-07-22 10:30 | NUR ---
Pt VS stable. Spoke to daughter on phone and answered all questions regarding updates and current condition. Will continue to monitor.
[2021-07-22] MEDS ORDERED: POTASSIUM CHLORIDE 50 MEQ in NS 250 ML IV ONE (11:00)
[2021-07-22] MEDS: INSULIN REGULAR, HUMAN 100 UNITS/ML, 10 ML VIAL (humuLIN R) SUBCUT PRN ×2 (12:03→18:05)
[2021-07-22] MEDS: FLUCONAZOLE 100 mg/ NS 50 ML IV SCH (13:11)
--- NOTE | 2021-07-22 16:00 | NUR ---
ETT was moved Q4 hours secure and patent Addendum: 07/22/21 at 1602 by Rachel Chao RT Amended: Links added.
--- NOTE | 2021-07-22 16:00 | NUR ---
No change in neuro status throughout day. VS have remained stable but pt is still unresponsive to stimuli. Spoke to various family members throughout day and provided updates regarding pt's condition. Pt appears to be having minor seizure activity with eyelids moving rapidly, waiting for neurology consult to see patient in person for assessment.
[2021-07-22] MEDS: levETIRAcetam 1,000 MG in NS 100 ML IV SCH (18:03)
--- NOTE | 2021-07-22 19:33 | NUR ---
report given to oncoming nurse and care relieved
[2021-07-22] MEDS: INSULIN GLARGINE 100 UNITS/ML 10 ML VIAL SUBCUT SCH (22:21)
[2021-07-22] MEDS ORDERED: AMPICILLIN SODIUM/SULBACTAM NA 1.5 GM VIAL ONE (23:01)
[2021-07-22] MEDS: AMPICILLIN SODIUM/SULBACTAM NA 1.5 GM in NS 50 ML IV SCH (23:04)
[2021-07-23] VITALS (27 sets, daily range): BP systolic 128–158
[2021-07-23] MEDS: NORMAL SALINE 5 ML DISP.SYRIN IVF SCH ×3 (06:17→21:12)
--- NOTE | 2021-07-23 07:14 | NUR ---
Report received from outgoing RN and care assumed. No significant events reported overnight. CT recently called and to bring pt down for scan. See chart for morning assessment. Will continue to monitor.
[2021-07-23] MEDS: INSULIN REGULAR, HUMAN 100 UNITS/ML, 10 ML VIAL (humuLIN R) SUBCUT PRN ×4 (07:15→23:52)
--- NOTE | 2021-07-23 07:53 | NUR ---
Pt's brother called upset stating his family information was given to the wrong person yesterday during day shift. I told the family member he needed a password but the family member was unwilling to create a password. I told him the family must choose one person to be informed about the patient's status and everyone else must be updated through that family member. The patient's brother was still upset stating he is not getting the information he wants but the hospital has given information about his brother to the wrong person. I tried to inform him of HIPAA but he hung up the phone in my face. Elba Hampton RN
[2021-07-23] MEDS: FERROUS SULFATE 325 MG TABLET.DR PO SCH ×2 (09:02→18:18)
[2021-07-23] MEDS: PANTOPRAZOLE SODIUM 40 MG/VIAL (PROTONIX) IVP SCH ×2 (09:02→21:10)
[2021-07-23] MEDS: AMPICILLIN SODIUM/SULBACTAM NA 1.5 GM in NS 50 ML IV SCH ×2 (09:03→21:09)
[2021-07-23] MEDS: MUPIROCIN 2% TOPICAL OINTMENT 22 GM TP SCH ×2 (09:03→21:12)
[2021-07-23] MEDS: BALSAM PERU/CASTOR OIL 56.7 GM OINT...G. TP SCH (09:04)
[2021-07-23] MEDS: levETIRAcetam 1,000 MG in NS 100 ML IV SCH ×2 (09:05→21:09)
--- NOTE | 2021-07-23 11:30 | NUR ---
Nutrition F/U Admitting Diagnosis Pneumonia, pleural effusion Reviewed Pertinent Medical/Surgical Hx Medical Record Other Medical History Comment: PMH: DM, chronic LE venous stasis ulcers, HTN, and possible dysplipidemia per physician notes SARS-CoV-2 Ag (Rapid) Negative 07/18 Subjective Information: the patient remains orally intubated, not sedated although not interactive. Discussed w/ primary RN, pending head CT for further evaluation of anoxic brain injury. TF of Glucerna 1.[address] GRV 10-15 ml on 07/22, total volume of TF 630 ml on 07/22. Per nursing documention abdomen is soft/nondistended, +bowel sounds x4. Contact isolation for +MRSA (nares). 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 Per EMR review: Yunier score 10, RLE w/ venous diabetic ulcer. Pt is not meeting nutritional needs. (07/18) Ice Platform Supervisor note revealed: 1. Right Mid Anterior Lower Extremity, Inferior to Knee: Venous ulcer with possible arterial involvement, present on admission. 2. Right Mid Anterior Lateral Lower Extremity, Inferior to Site 1: Venous ulcer with possible arterial involvement, present on admission. 3. Right Dorsal Foot: Chronic Vascular Ulcer, present on admission. 4. Right Anterior Medial Hallux: Chronic wound, present on admission. 5. Left Posterior Heel:Chronic unstageable pressure ulcer, present on admission. 6. Left Anterior Medial Hallux: Chronic vascular ulcer, present on admission. 7. Left Anterior Second Toe: Chronic vascular ulcer, present on admission. 8. Left Anterior Second Toe, Distal to Site 7: Chronic vascular ulcer, present on admission.; Ve: 10.3; Tmax: 37.6'C. Pt is not yet meeting nutritional needs and initiation of EN support is warranted. Current Diet Order/Nutrition Support: NGTF Glucerna 1.5 @ 35 ml/h x3 days Education Provided Not Indicated Pertinent Medications: Lantus 8u qHS, Regular ISS Pertinent Labs: POC glucose 163-241 H, BUN 46 H, CRE 1.6 H Height (Feet) 5 feet Height (Inches) 9.00 inches Weight (Pounds) 160 pounds Weight (Calculated Kilograms) 72.651372 kilograms Patient Weight 72.575 kg Body Mass Index 23.63 kg/m2 %IBW 100 Hanna/Adjusted Body Weight 160#/72.8 kg Recent Weight Change Unable to verify Weight Status Appropriate Food Allergies: Unable to verify Usual Diet At Home: Diabetic per nursing nutritional screening assessment NEW (07/23) Estimated Energy Expenditure (kcals/day) 1647 (PSU d/t critical illness, intubated; Ve: 8.1; Tmax: 36.9'C) Estimated Protein Required (g/day) 95-145 (1.3-2 gm/kg CBW d/t critical illness, intubated) Estimated Fluid Required (l/day) 1.8 (1 ml/kcal/day for maintenance) Problem/Etiology/Signs/Symptoms Inadequate nutritional intakes R/T metabolic demands AEB NPO status and inability to meet estimated nutritional requirements for critical illness. Expected Outcomes/Goals - Monitor provision of EN support w/ goal of pt meeting >80% of estimated nutritional needs, labs trending WNL, normal GI function, and skin integrity/wt maintenance Dietitian Recommendations * increase rate of Glucerna 1.5 to 40 ml/hr (goal), Prosource daily, Riky BID, Free Water Flush: 200 ml Q4h via NGT TF + supplements would provide: 1590 kcal/day, 114 gm protein/day, and 1838 ml free water/day Meets: 97% of estimated caloric needs, 100% of lower end of estimated protein needs, and 100% of estimated fluid needs Follow Up High Risk: F/U in 2-3 days Follow Up By Jul 26, 2021
[2021-07-23] MEDS: FLUCONAZOLE 100 mg/ NS 50 ML IV SCH (11:46)
--- NOTE | 2021-07-23 11:53 | NUR ---
Dietitian Recommendations: Increase rate of Glucerna 1.5 to 40 ml/hr (goal) Continue Prosource daily, Riky BID, Free Water Flush: 200 ml Q4h via NGT TF + supplements would provide: 1590 kcal/day, 114 gm protein/day, and 1929 ml free water/day Meets: 97% of estimated caloric needs, 100% of lower end of estimated protein needs, and 107% of estimated fluid needs PS, RD
--- NOTE | 2021-07-23 14:35 | NUR ---
ASSISTED TRANSFERRING PT TO CT SCAN. BAGGED PT, PLACED BACK ON VENT UPON RETURN. BERTHAU BAG AT BEDSIDE. Addendum: 07/23/21 at 1437 by Rachel Chao RT Amended: Links added.
--- NOTE | 2021-07-23 18:09 | NUR ---
Dr. Dwight jimenez called and said he wanted to start pt on versed drip at 2mg/hr for seizures, asked me to page and speak to Dr. Tristan to make sure it was ok and he was aware. Dr Tristan called back immediately and said no problem. Order received and will enter into eMAR
--- NOTE | 2021-07-23 19:20 | NUR ---
report given to oncoming nurse and care relieved. Pt VS stable and all questions answered and concerns addressed.
--- NOTE | 2021-07-23 19:20 | NUR ---
Opening notes Received report from endorsing morning shift RN for continuity of care. Patient is lying in bed in no signs of distress or pain with IVF NS @ 10mL/hr. Patient's vital sings blood pressure 156/84, heart rate 84, respirations 16, and SPO2 99% on ventilator. Ventilator settings: AC 16, FIO2 40%, tidal volume 500, and peep of 5. Quevedo catheter is in place draining to gravity. Bed is locked and in lowest position, fall and safety precautions is in place.
[2021-07-23] MEDS ORDERED: MIDAZOLAM IN NACL,ISO-OSMOT/PF 100 ML IV ONE (20:07)
[2021-07-23] MEDS: MIDAZOLAM IN NACL,ISO-OSMOT/PF 100 ML IV PRN (20:21)
[2021-07-23] MEDS: INSULIN GLARGINE 100 UNITS/ML 10 ML VIAL SUBCUT SCH (21:11)
[2021-07-24] VITALS (36 sets, daily range): BP systolic 112–164
[2021-07-24] MEDS: NORMAL SALINE 5 ML DISP.SYRIN IVF SCH ×3 (05:52→21:19)
[2021-07-24] MEDS: INSULIN REGULAR, HUMAN 100 UNITS/ML, 10 ML VIAL (humuLIN R) SUBCUT PRN ×4 (05:53→23:47)
[2021-07-24 06:40] LABS: BASOPHILS % (AUTO) 0.3 % (0.0-2.0); EOSINOPHILS # (AUTO) 0.1 K/uL (0.0-0.4); EOSINOPHILS % (AUTO) 2.1 % (0.0-4.0); HEMATOCRIT 26.7 % (36-54); LYMPHOCYTES # (AUTO) 0.7 K/uL (1.0-5.5); LYMPHOCYTES % (AUTO) 12.1 % (20.5-51.5); MEAN CORPUSCULAR HEMOGLOBIN 27 pg (27-31); MEAN CORPUSCULAR HGB CONC 34 % (32-36); MEAN CORPUSCULAR VOLUME 79 fL (79.0-98.0); MONOCYTES # (AUTO) 0.6 K/uL (0.0-1.0); MONOCYTES % (AUTO) 9.2 % (1.7-9.3); NEUTROPHILS # (AUTO) 4.7 K/uL (1.8-7.7); NEUTROPHILS % (AUTO) 76.3 % (40.0-70.0); PLATELET COUNT (AUTO) 220 K/uL (130-430); RED CELL DISTRIBUTION WIDTH 15.7 % (9.0-15.0); WHITE BLOOD COUNT (AUTO) 6.1 K/uL (4.8-10.8)
[2021-07-24 06:56] LABS: ALBUMIN 1.6 g/dL (3.4-4.8); C-REACTIVE PROTEIN QUANT 1.7 mg/dL (0-0.5); CREATININE 1.51 mg/dL (0.55-1.30); PHOSPHORUS 2.6 mg/dL (2.7-4.5); POTASSIUM 3.3 mmol/L (3.5-5.1); TOTAL BILIRUBIN 0.1 mg/dL (0.0-1.0)
--- NOTE | 2021-07-24 07:18 | NUR ---
SBAR received from outgoing nurse, PAVEL Dacosta Patient is stable and in no distress. Denise Lou RN
[2021-07-24] MEDS: FERROUS SULFATE 325 MG TABLET.DR PO SCH ×2 (08:45→17:46)
[2021-07-24] MEDS: AMPICILLIN SODIUM/SULBACTAM NA 1.5 GM in NS 50 ML IV SCH ×2 (08:47→20:31)
[2021-07-24] MEDS: PANTOPRAZOLE SODIUM 40 MG/VIAL (PROTONIX) IVP SCH ×2 (08:47→20:33)
[2021-07-24] MEDS: levETIRAcetam 1,000 MG in NS 100 ML IV SCH ×2 (08:50→20:32)
[2021-07-24] MEDS: KCL 20 mEq in 100 mL (PREMIX) 100 ML IV SCH ×2 (09:09→11:34)
[2021-07-24] MEDS: MUPIROCIN 2% TOPICAL OINTMENT 22 GM TP SCH ×2 (09:09→20:33)
[2021-07-24] MEDS: BALSAM PERU/CASTOR OIL 56.7 GM OINT...G. TP SCH (09:10)
[2021-07-24 09:19] LABS: ERYTHROCYTE SEDIMENTATION RATE 44 MM/HR (0-15)
[2021-07-24] MEDS: FLUCONAZOLE 100 mg/ NS 50 ML IV SCH (11:34)
--- NOTE | 2021-07-24 19:00 | NUR ---
Opening notes Received report from endorsing morning shift RN Brittny for continuity of care. Patient is lying in bed in no signs of distress with IVF NS @ 10mL/hr and versed @ 2mg/hr. Patient's vital signs blood pressure 143/82, heart rate 67, respirations 17, and SPO2 99% on ventilator. Patient's vent settings AC 16, FIO2 30%, tidal volume 500, and peep of 5. Quevedo catheter and rectal tube is in place draining to gravity. Bed is locked and in lowest position, fall and safety precautions is in place.
--- NOTE | 2021-07-24 19:17 | NUR ---
SBAR given to incoming nurse, PAVEL Dacosta Patient is stable and in no distress. Denise Lou RN
[2021-07-24] MEDS: INSULIN GLARGINE 100 UNITS/ML 10 ML VIAL SUBCUT SCH (20:35)
[2021-07-25] VITALS (32 sets, daily range): BP systolic 96–155
[2021-07-25] MEDS: INSULIN REGULAR, HUMAN 100 UNITS/ML, 10 ML VIAL (humuLIN R) SUBCUT PRN ×4 (05:38→21:55)
[2021-07-25] MEDS: NORMAL SALINE 5 ML DISP.SYRIN IVF SCH ×3 (05:39→21:58)
[2021-07-25 06:19] LABS: BASOPHILS % (AUTO) 0.3 % (0.0-2.0); EOSINOPHILS # (AUTO) 0.1 K/uL (0.0-0.4); EOSINOPHILS % (AUTO) 1.3 % (0.0-4.0); HEMATOCRIT 30.1 % (36-54); HEMOGLOBIN 9.8 g/dL (14.0-18.0); LYMPHOCYTES # (AUTO) 0.7 K/uL (1.0-5.5); LYMPHOCYTES % (AUTO) 6.8 % (20.5-51.5); MEAN CORPUSCULAR HEMOGLOBIN 26 pg (27-31); MEAN CORPUSCULAR HGB CONC 33 % (32-36); MEAN CORPUSCULAR VOLUME 79 fL (79.0-98.0); MONOCYTES # (AUTO) 0.6 K/uL (0.0-1.0); MONOCYTES % (AUTO) 5.3 % (1.7-9.3); NEUTROPHILS # (AUTO) 9.4 K/uL (1.8-7.7); NEUTROPHILS % (AUTO) 86.3 % (40.0-70.0); PLATELET COUNT (AUTO) 249 K/uL (130-430); RED CELL DISTRIBUTION WIDTH 16.1 % (9.0-15.0); WHITE BLOOD COUNT (AUTO) 10.9 K/uL (4.8-10.8)
[2021-07-25 06:45] LABS: ALBUMIN 1.8 g/dL (3.4-4.8); CREATININE 1.48 mg/dL (0.55-1.30); POTASSIUM 3.9 mmol/L (3.5-5.1); TOTAL BILIRUBIN 0.2 mg/dL (0.0-1.0)
[2021-07-25] MEDS: FERROUS SULFATE 325 MG TABLET.DR PO SCH ×2 (09:21→17:49)
[2021-07-25] MEDS: PANTOPRAZOLE SODIUM 40 MG/VIAL (PROTONIX) IVP SCH ×2 (09:22→21:58)
[2021-07-25] MEDS: AMPICILLIN SODIUM/SULBACTAM NA 1.5 GM in NS 50 ML IV SCH ×2 (09:23→21:57)
[2021-07-25] MEDS: levETIRAcetam 1,000 MG in NS 100 ML IV SCH ×2 (09:25→21:57)
[2021-07-25] MEDS: FLUCONAZOLE 100 mg/ NS 50 ML IV SCH (12:20)
[2021-07-25] MEDS: MUPIROCIN 2% TOPICAL OINTMENT 22 GM TP SCH ×2 (12:27→21:58)
[2021-07-25] MEDS: BALSAM PERU/CASTOR OIL 56.7 GM OINT...G. TP SCH (12:27)
[2021-07-25] MEDS ORDERED: MIDAZOLAM IN NACL,ISO-OSMOT/PF 100 ML IV ONE (14:38)
[2021-07-25] MEDS: MIDAZOLAM IN NACL,ISO-OSMOT/PF 100 ML IV PRN (14:44)
--- NOTE | 2021-07-25 19:30 | NUR ---
received report from AM nurse using SBAR approach.
--- NOTE | 2021-07-25 20:00 | NUR ---
daughter in to see patient. answered all questions.
--- NOTE | 2021-07-25 20:28 | NUR ---
END OF SHIFT REPORT: PATIENT HANDED OVER TO ELECTRICAL DESIGN TECHNOLOGIST RN SCARLET. STILL ON SEDATION. DAUGHTER FLOYD PEÑA CALLED UP EARLIER TO INQUIRE TO HOW THE PATIENT IS DOING & MENTIONED THAT MD TALKED TO HER YESTERDAY ABOUT THE PLAN FOR 2 WEEKS BEING ON VENTILATOR. PATIENT NO , ONLY HAVE 1 CHILD/DAUGHTER. DAUGHTER FLOYD CAME TO VISIT THIS EVENING, ASKED THE REPORT OF LABS, EEG, CURRENT STATUS. RIGHT LOWER LEG WOUND SATURATED OPTIFOAM GENTLE WITH YELLOW EXUDATE, CHANGED OPTIFOAM GENTLE DRESSING WITH OINTMENT DUE APPLIED. LEFT HEEL SMALL EXUDATE, CHANGE OPTIFOAM ADHESIVE IS PEELING OFF, CHANGED AFTER APPLYING WOUND OINTMENT. STRESS TEST TECHNICIAN FROM [facility] [employer]ARA [employer] CALLED, SHE IS COVERING MELISSA THE OTHER STRESS TEST TECHNICIAN AND WANTS TO FIND OUT OF CURRENT STATUS.
[2021-07-25] MEDS: INSULIN GLARGINE 100 UNITS/ML 10 ML VIAL SUBCUT SCH (21:54)
[2021-07-26] VITALS (31 sets, daily range): BP systolic 115–162
[2021-07-26] MEDS: INSULIN REGULAR, HUMAN 100 UNITS/ML, 10 ML VIAL (humuLIN R) SUBCUT PRN ×3 (01:49→17:55)
[2021-07-26] MEDS: NORMAL SALINE 5 ML DISP.SYRIN IVF SCH ×3 (06:40→22:00)
--- NOTE | 2021-07-26 09:05 | NUR ---
PER MD DUMONT, PULMONOLOGY, TO STOP VERSED DRIP. MD WANTS SBT TRIALS "A FEW TIMES TODAY" TO SEE HOW PATIENT RESPONDS. RT CLAIRE AT BEDSIDE TO RECEIVE SAME INSTRUCTIONS. ONLY TIME VERSED INFUSION TO BE RESTARTED IS IF PATIENT GETS AGITATED, TACHYCARDIC OR TACHYPNIC AND CANNOT TOLERATE SBT TRIALS ANYMORE PER MD DUMONT. PT CALM AND COMFORTABLE AT THIS TIME. VSS. NAD NOTED. WILL CONTINUE TO MONITOR PT.
[2021-07-26] MEDS: FERROUS SULFATE 325 MG TABLET.DR PO SCH ×2 (09:13→17:47)
[2021-07-26] MEDS: levETIRAcetam 1,000 MG in NS 100 ML IV SCH ×2 (09:16→21:00)
[2021-07-26] MEDS: AMPICILLIN SODIUM/SULBACTAM NA 1.5 GM in NS 50 ML IV SCH ×2 (09:16→21:00)
[2021-07-26] MEDS: PANTOPRAZOLE SODIUM 40 MG/VIAL (PROTONIX) IVP SCH ×2 (09:16→21:00)
[2021-07-26] MEDS: MUPIROCIN 2% TOPICAL OINTMENT 22 GM TP SCH ×2 (09:17→21:00)
[2021-07-26] MEDS: BALSAM PERU/CASTOR OIL 56.7 GM OINT...G. TP SCH (09:18)
--- NOTE | 2021-07-26 09:30 | NUR ---
PATIENT'S DAUGHTER FLOYD AT BEDSIDE. ALL QUESTIONS ANSWERED. UPDATED ON PLAN OF CARE INCLUDING MD DUMONT ORDERS FROM PULMONOLOGY. 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 NO FURTHER QUESTIONS AT THIS TIME. WILL CONTINUE TO MONITOR PT. VSS. NAD NOTED.
[2021-07-26 10:26] LABS: POTASSIUM 3.6 mmol/L (3.5-5.1)
[2021-07-26 10:45] LABS: CALCIUM 7.1 mg/dL (8.4-11.0)
[2021-07-26 10:46] LABS: CREATININE 1.42 mg/dL (0.55-1.30)
--- NOTE | 2021-07-26 11:10 | NUR ---
RT RANGEL AT BEDSIDE FOR PATIENT SBT. PT TOLERATING WELL, ON CPAP. PT RR AT 16-22 AT THIS TIME. CPAP FOR ADDITIONAL TIDAL VOLUME. NAD NOTED. VSS. SPO2@100%. WILL CONTINUE TO MONITOR PT.
[2021-07-26] MEDS: FLUCONAZOLE 100 mg/ NS 50 ML IV SCH (11:30)
--- NOTE | 2021-07-26 15:47 | NUR ---
PLACED BACK TO AC16, VT 500, PEEP +5, FIO2 30%/ PATIENT TOLERATED WELL ON CPAP 5, PS 10.
--- NOTE | 2021-07-26 16:24 | NUR ---
SENIOR NATIONAL ACCOUNT MANAGER REFRIGERATION SYSTEMS INSTALLER Fidelina received a call from patient's daughter Minnie requesting support with obtaining a letter depicting patient's status as she is needing to attend to some of his financial obligations. REFRIGERATION SYSTEMS INSTALLER encouraged her to contact center professional's/institutions that are requiring payment etc and inquire into what they will be needing from her and/or medical facility to depict medical incapacity. PLAN- REFRIGERATION SYSTEMS INSTALLER will provide patient's daughter with general letter exhibiting his status during her upcoming visit 07/27/2021 REFRIGERATION SYSTEMS INSTALLER will continue to be available as needed.
--- NOTE | 2021-07-26 19:18 | NUR ---
SBAR TO MADELYN ZHAO. ALL QUESTIONS ANSWERED. PT VSS. NAD NOTED. CURRENTLY BACK ON AC VENT SETTINGS. AC 16, VT 500, PEEP 5, 30% FiO2. SBT TO BE IMPLEMENTED AGAIN TOMORROW PER MD DUMONT AND RT RANGEL. NO VERSED SEDATION DRIP AT THIS TIME PER MD DUMONT UNLESS PT GETS AGITATED, TACHYCARDIC OR TACHYPNIC. END OF CARE.
[2021-07-26] MEDS: INSULIN GLARGINE 100 UNITS/ML 10 ML VIAL SUBCUT SCH (21:00)
[2021-07-27] VITALS (34 sets, daily range): BP systolic 123–162
[2021-07-27] MEDS: NORMAL SALINE 5 ML DISP.SYRIN IVF SCH ×3 (06:00→22:00)
[2021-07-27 07:03] LABS: CREATININE 1.49 mg/dL (0.55-1.30)
--- NOTE | 2021-07-27 08:05 | NUR ---
PLACED ON CPAP 5, PS 10 BY MD DUMONT. 0918 ABG AND WEANING PARAMETERS. RSBI 46, SPONTANEOUS RR 24, VT 350-400ML. UNABLE TO GET NIF AND VC AT THIS TIME DUE TO PATIENT UNABLE TO FOLLOW COMMANDS AT THIS TIME. PATIENT TOLERATING WELL ON CPAP.
[2021-07-27 08:51] LABS: CALCIUM 7.3 mg/dL (8.4-11.0)
[2021-07-27] MEDS: PANTOPRAZOLE SODIUM 40 MG/VIAL (PROTONIX) IVP SCH ×2 (09:21→21:00)
[2021-07-27] MEDS: AMPICILLIN SODIUM/SULBACTAM NA 1.5 GM in NS 50 ML IV SCH ×2 (09:22→21:00)
[2021-07-27] MEDS: levETIRAcetam 1,000 MG in NS 100 ML IV SCH ×2 (09:23→21:00)
[2021-07-27] MEDS: FERROUS SULFATE 325 MG TABLET.DR PO SCH ×2 (10:01→18:58)
[2021-07-27] MEDS: MUPIROCIN 2% TOPICAL OINTMENT 22 GM TP SCH ×2 (10:01→21:00)
[2021-07-27] MEDS: BALSAM PERU/CASTOR OIL 56.7 GM OINT...G. TP SCH (10:01)
--- NOTE | 2021-07-27 10:20 | NUR ---
Spoke with Daughter Minnie about family information sharing. The current plan developed by the daughter is that she will be the only one to be given a full report and status update on the patient, all other callers will be given a simple update (if the patient is stable and still on vent only). No restriction for visitors at the moment.
[2021-07-27] MEDS: FLUCONAZOLE 100 mg/ NS 50 ML IV SCH (11:21)
[2021-07-27] MEDS ORDERED: ALPRAZolam 0.25 MG TABLET PO PRN (12:00)
[2021-07-27] MEDS ORDERED: traMADol HCL HCL 50 MG TABLET (ULTRAM) PO PRN (12:00)
[2021-07-27] MEDS ORDERED: HYDROcodone/ACETAMIN 5-325 MG TAB (NORCO/ VICODIN) PO PRN (12:00)
[2021-07-27] MEDS: INSULIN REGULAR, HUMAN 100 UNITS/ML, 10 ML VIAL (humuLIN R) SUBCUT PRN ×2 (15:19→18:55)
--- NOTE | 2021-07-27 17:12 | NUR ---
PLACED BACK TO PREVIOUS VENT SETTINGS, AC 16, VT500, PEEP +5. PATIENT TOLERATED WELL ON CPAP.
[2021-07-27] MEDS: INSULIN GLARGINE 100 UNITS/ML 10 ML VIAL SUBCUT SCH (21:00)
[2021-07-28] VITALS (30 sets, daily range): BP systolic 113–168
[2021-07-28 05:51] LABS: BASOPHILS % (AUTO) 0.6 % (0.0-2.0); EOSINOPHILS # (AUTO) 0.3 K/uL (0.0-0.4); EOSINOPHILS % (AUTO) 3.4 % (0.0-4.0); HEMATOCRIT 27.5 % (36-54); LYMPHOCYTES # (AUTO) 0.9 K/uL (1.0-5.5); LYMPHOCYTES % (AUTO) 10.1 % (20.5-51.5); MEAN CORPUSCULAR HEMOGLOBIN 26 pg (27-31); MEAN CORPUSCULAR HGB CONC 33 % (32-36); MEAN CORPUSCULAR VOLUME 79 fL (79.0-98.0); MONOCYTES # (AUTO) 0.6 K/uL (0.0-1.0); NEUTROPHILS # (AUTO) 6.9 K/uL (1.8-7.7); NEUTROPHILS % (AUTO) 78.9 % (40.0-70.0); PLATELET COUNT (AUTO) 232 K/uL (130-430); RED CELL DISTRIBUTION WIDTH 16.9 % (9.0-15.0); WHITE BLOOD COUNT (AUTO) 8.7 K/uL (4.8-10.8)
[2021-07-28] MEDS: NORMAL SALINE 5 ML DISP.SYRIN IVF SCH ×3 (06:00→22:26)
[2021-07-28 06:23] LABS: CALCIUM 7.1 mg/dL (8.4-11.0); CREATININE 1.5 mg/dL (0.55-1.30); POTASSIUM 3.7 mmol/L (3.5-5.1)
--- NOTE | 2021-07-28 08:11 | NUR ---
rt notes 0811 Placed pt on CPAP trial , pt did not tolerate. Pt went apneic. PAVEL Aguilera aware. will try CPAP at PM.
--- NOTE | 2021-07-28 08:50 | NUR ---
CRITICAL LAB RECEIVED CRITICAL LAB VALUE AT [address] SOUZA NO CHANGE IN ORDER
[2021-07-28] MEDS: FERROUS SULFATE 325 MG TABLET.DR PO SCH ×2 (09:20→18:22)
[2021-07-28] MEDS: PANTOPRAZOLE SODIUM 40 MG/VIAL (PROTONIX) IVP SCH ×2 (09:20→22:28)
[2021-07-28] MEDS: AMPICILLIN SODIUM/SULBACTAM NA 1.5 GM in NS 50 ML IV SCH ×2 (09:24→22:30)
[2021-07-28] MEDS: levETIRAcetam 1,000 MG in NS 100 ML IV SCH ×2 (09:29→22:38)
[2021-07-28] MEDS: BALSAM PERU/CASTOR OIL 56.7 GM OINT...G. TP SCH (09:30)
[2021-07-28] MEDS: MUPIROCIN 2% TOPICAL OINTMENT 22 GM TP SCH ×2 (09:30→22:27)
--- NOTE | 2021-07-28 09:44 | NUR ---
rt notes 0936 dr antonio lowered down vent sate rate to 12. will monitor pt.
--- NOTE | 2021-07-28 10:59 | NUR ---
SPOKE TO PATIENT'S DAUGHTER ON THE PHONE. ANSWERED ALL QUESTIONS.
[2021-07-28] MEDS: FLUCONAZOLE 100 mg/ NS 50 ML IV SCH (12:05)
[2021-07-28] MEDS: INSULIN REGULAR, HUMAN 100 UNITS/ML, 10 ML VIAL (humuLIN R) SUBCUT PRN ×2 (12:51→18:29)
--- NOTE | 2021-07-28 14:35 | NUR ---
rt notes 1435- Placed pt on CPAP 5, PS 10,40% FIO2, PT SATURATING 98%. Pt tolerating well. no disrtress noted. PAVEL Aguilera aware of changes.
[2021-07-29] VITALS (33 sets, daily range): BP systolic 122–167
[2021-07-29] MEDS: INSULIN GLARGINE 100 UNITS/ML 10 ML VIAL SUBCUT SCH ×2 (02:37→21:00)
[2021-07-29] MEDS: INSULIN REGULAR, HUMAN 100 UNITS/ML, 10 ML VIAL (humuLIN R) SUBCUT PRN ×5 (02:41→23:31)
[2021-07-29] MEDS: NORMAL SALINE 5 ML DISP.SYRIN IVF SCH ×3 (06:20→22:00)
--- NOTE | 2021-07-29 07:20 | NUR ---
RT NOTES pt does not appear to follow commands, eyes remained closed and did not squeeze hand when asked, but appears to be tolerating CPAP well, there were a couple of periods of Apnea noted, but did not last long. Will monitor pt.
--- NOTE | 2021-07-29 07:30 | NUR ---
OPENING NOTE RECEIVED BEDSIDE REPORT FROM ARNIE. PT HOB ELEVATED 45 DEGREES. PT DOES NOT ANSWER ANY QUESTIONS. PT ON CPAP SINCE 07/28/21 AT 5, PS 10, 4-% FI02 AND SATTING AT 97%. SBP IN THE 160'S. HR IN THE 90'S. PUPILS ARE FIXED AND DILATED. PT TOLERATING WELL. PT HAS OG TUBE PRESENT WITH GLUCERNA 1.5 RUNNING AT 35MLS/HR. PT HAS CENTRAL LINE TRIPLE LUMEN IN THE RIGHT FEMORAL. ALL PORTS HAVE BLOOD RETURN AND HAVE BEEN FLUSHED WITH NS FOR PATENCY. VENOUS ULCER ON RIGHT LEG, DTI ON LEFT HEEL, AND PROPHYLACTIC FOAM DRESSING ON COCCYX. DE LA TORRE DRAINING TO GRAVITY WITH CLEAR YELLOW URINE WITH RED SEDIMENT PRESENT. FLEXI-SEAL PRESENT DRAINING TO GRAVITY WITH BLACK WATERY STOOL. BED IN LOWEST POSITION WITH BRAKES ON AND BED RAILS UP, CALL LIGHT WITHIN REACH.
[2021-07-29] MEDS: FERROUS SULFATE 325 MG TABLET.DR PO SCH ×2 (08:03→17:25)
[2021-07-29] MEDS: BALSAM PERU/CASTOR OIL 56.7 GM OINT...G. TP SCH (08:03)
[2021-07-29] MEDS: MUPIROCIN 2% TOPICAL OINTMENT 22 GM TP SCH ×2 (08:03→21:00)
[2021-07-29] MEDS: levETIRAcetam 1,000 MG in NS 100 ML IV SCH ×2 (08:03→21:00)
[2021-07-29] MEDS: PANTOPRAZOLE SODIUM 40 MG/VIAL (PROTONIX) IVP SCH ×2 (08:04→21:00)
[2021-07-29 08:07] LABS: CALCIUM 7.3 mg/dL (8.4-11.0); CREATININE 1.46 mg/dL (0.55-1.30); POTASSIUM 3.8 mmol/L (3.5-5.1)
--- NOTE | 2021-07-29 08:30 | NUR ---
DR BULLOCK AT BEDSIDE ADVISED PT SPB IN THE 150'S. ORDERED HYDRALAZINE 10 MG IV Q8HRS FOR SPB >160.
[2021-07-29 08:35] LABS: BASOPHILS # (AUTO) 0.1 K/uL (0.0-0.2); BASOPHILS % (AUTO) 0.6 % (0.0-2.0); EOSINOPHILS # (AUTO) 0.4 K/uL (0.0-0.4); EOSINOPHILS % (AUTO) 4.2 % (0.0-4.0); HEMATOCRIT 28.9 % (36-54); HEMOGLOBIN 9.2 g/dL (14.0-18.0); LYMPHOCYTES # (AUTO) 0.7 K/uL (1.0-5.5); LYMPHOCYTES % (AUTO) 8.4 % (20.5-51.5); MEAN CORPUSCULAR HEMOGLOBIN 26 pg (27-31); MEAN CORPUSCULAR HGB CONC 32 % (32-36); MONOCYTES # (AUTO) 0.6 K/uL (0.0-1.0); MONOCYTES % (AUTO) 6.7 % (1.7-9.3); NEUTROPHILS # (AUTO) 6.9 K/uL (1.8-7.7); NEUTROPHILS % (AUTO) 80.1 % (40.0-70.0); PLATELET COUNT (AUTO) 253 K/uL (130-430); RED BLOOD CELL COUNT(AUTO) 3.57 MIL/uL (4.2-6.2); RED CELL DISTRIBUTION WIDTH 16.5 % (9.0-15.0); WHITE BLOOD COUNT (AUTO) 8.6 K/uL (4.8-10.8)
[2021-07-29] MEDS: AMPICILLIN SODIUM/SULBACTAM NA 1.5 GM in NS 50 ML IV SCH ×2 (08:45→21:00)
[2021-07-29] MEDS ORDERED: hydrALAZINE HCL 20 MG/ML VIAL IVP PRN (09:45)
--- NOTE | 2021-07-29 09:56 | NUR ---
DR KOBE DURANT FOR CRITICALLY HIGH CHLORIDE AT 122
--- NOTE | 2021-07-29 10:25 | NUR ---
DR DMUONT IN RN STATION ADVISED CHLORIDE 122, SODIUM 155, AND CALCIUM 7.3. ORDERED BANANA FLAKES FROM DIETARY IN G-TUBE, INCREASED WATER FLUSHES IN OG-TUBE 300MLS Q4HRS, AND 1/2 NS 70MLS/HR.
[2021-07-29] MEDS ORDERED: 0.45% NACL 1,000 ML IV SCH (10:30)
[2021-07-29 11:06] LABS: MEAN CORPUSCULAR VOLUME 81 fL (79.0-98.0)
[2021-07-29] MEDS: FLUCONAZOLE 100 mg/ NS 50 ML IV SCH (17:25)
[2021-07-29] MEDS: D5W 1,000 ML IV SCH (17:42)
--- NOTE | 2021-07-29 17:46 | NUR ---
RT NOTES Apneic episode was longer than the ones witnessed today, but less than 20 seconds. Pt. appears tired/asleep. Vent back to AC 12 500 30% +5 settings. Rn aware.
--- NOTE | 2021-07-29 18:59 | NUR ---
DIETARY CONSULT PUT IN FOR PT TO RECEIVE BANANA FLAKES, ORDERED BY DR DUMONT
[2021-07-30] VITALS (32 sets, daily range): BP systolic 133–164
[2021-07-30] MEDS: NORMAL SALINE 5 ML DISP.SYRIN IVF SCH ×3 (05:56→22:00)
--- NOTE | 2021-07-30 06:00 | NUR ---
--PT CONT. WITH ETT-VENT. PT CHADWICK SX AND RTX WELL. POX HAS BEEN 99%. BS SDS ARE DIMINISHED JORGE. PT HAS LARGE AMT OF PICKARD THICK SPUT-SUE. ORAL. PT CONT. IN SR. IV I/P-VIA RIGHT FEM. U/O ADEQ. 1000CC/YELL-CLR. RECT. TUBE INTACT-BRN DIARRHEA. AM LABS DONE. PT ENDORSED TO PIOTR GUERRIER IN STABL BUT GUARDED COND. SROLANDA ZHAO
[2021-07-30 06:54] LABS: BASOPHILS # (AUTO) 0.1 K/uL (0.0-0.2); BASOPHILS % (AUTO) 0.9 % (0.0-2.0); EOSINOPHILS # (AUTO) 0.3 K/uL (0.0-0.4); EOSINOPHILS % (AUTO) 4.9 % (0.0-4.0); LYMPHOCYTES # (AUTO) 0.7 K/uL (1.0-5.5); LYMPHOCYTES % (AUTO) 9.9 % (20.5-51.5); MEAN CORPUSCULAR HEMOGLOBIN 26 pg (27-31); MEAN CORPUSCULAR HGB CONC 32 % (32-36); MEAN CORPUSCULAR VOLUME 80 fL (79.0-98.0); MONOCYTES # (AUTO) 0.5 K/uL (0.0-1.0); MONOCYTES % (AUTO) 6.9 % (1.7-9.3); NEUTROPHILS # (AUTO) 5.4 K/uL (1.8-7.7); NEUTROPHILS % (AUTO) 77.4 % (40.0-70.0); PLATELET COUNT (AUTO) 235 K/uL (130-430); RED BLOOD CELL COUNT(AUTO) 3.49 MIL/uL (4.2-6.2); RED CELL DISTRIBUTION WIDTH 16.3 % (9.0-15.0); WHITE BLOOD COUNT (AUTO) 6.9 K/uL (4.8-10.8)
[2021-07-30 07:08] LABS: ALANINE AMINOTRANSFERASE 76 U/L (12-78); ALBUMIN 1.6 g/dL (3.4-4.8); ANION GAP 7 (5-15); ASPARTATE AMINOTRANSFERASE 63 U/L (10-37); CREATININE 1.25 mg/dL (0.55-1.30); GLUCOSE 309 mg/dL (70-99); POTASSIUM 3.9 mmol/L (3.5-5.1); SODIUM SERUM 155 mmol/L (136-145); TOTAL BILIRUBIN < 0.1 mg/dL (0.0-1.0); UREA NITROGEN, BLOOD 37 mg/dL (8-21)
[2021-07-30] MEDS: INSULIN REGULAR, HUMAN 100 UNITS/ML, 10 ML VIAL (humuLIN R) SUBCUT PRN ×3 (07:27→17:48)
--- NOTE | 2021-07-30 07:30 | NUR ---
OPENING NOTES: RECEIVED BEDSIDE REPORT FROM MARGIE. PT RESTING IN BED WITH HOB ELEVATED TO 45 DEGREES. PT INTUBATED WITH VENT SETTINGS: AC RR16, TV500, 30% FI02, PEEP 5. PATIENT HAS A CENTRAL LINE IN THE RIGHT GROIN. D5W RUNNING AT 70 MLS/HR. DE LA TORRE IN PLACE WITH YELLOW URINE PRESENT, DRAINING TO GRAVITY. FLEXI-SEAL IN PLACE. OG TUBE PRESENT WITH GLUCERNA 1.5 RUNNING AT 35MLS/HR. BED IN LOWEST POSITION, BED BRAKES ON, BED RAILS UP, CALL LIGHT WITHIN REACH. CONTACT ISOLATION PRECAUTIONS NOTED FOR MRSA OF THE NARES.
--- NOTE | 2021-07-30 07:42 | NUR ---
RT NOTES Pt is awake, but does not follow command, per daily SBT, vent to CPAP 5 PS10. No adverse reactions noted. Will monitor pt. RN made aware.
[2021-07-30 08:00] LABS: CHLORIDE 121 mmol/L (98-107); GFR AFRICAN AMERICAN 75 mL/min (>90)
[2021-07-30] MEDS: D5W 1,000 ML IV SCH ×2 (08:06→22:06)
[2021-07-30] MEDS: BALSAM PERU/CASTOR OIL 56.7 GM OINT...G. TP SCH (08:06)
[2021-07-30] MEDS: MUPIROCIN 2% TOPICAL OINTMENT 22 GM TP SCH (08:06)
[2021-07-30] MEDS: levETIRAcetam 1,000 MG in NS 100 ML IV SCH ×2 (08:11→21:10)
[2021-07-30] MEDS: FERROUS SULFATE 325 MG TABLET.DR PO SCH ×2 (08:11→17:39)
[2021-07-30] MEDS: PANTOPRAZOLE SODIUM 40 MG/VIAL (PROTONIX) IVP SCH ×2 (08:12→21:13)
[2021-07-30] MEDS: AMPICILLIN SODIUM/SULBACTAM NA 1.5 GM in NS 50 ML IV SCH ×2 (08:12→21:12)
--- NOTE | 2021-07-30 15:20 | NUR ---
EXTUBATION PLAN: DR DUMONT SPOKE WITH DAUGHTER FLOYD AND WANTED ME TO CONFIRM THE CONVERSATION WITH THE DAUGHTER. FLOYD HAS AGREED TO EXTUBATION ON Saturday, July AT [address] A DNI ORDER. AT THAT TIME, PT WILL NOT BE INTUBATED. FLOYD COMPLETELY UNDERSTOOD THE PLAN AND IS IN AGREEMENT. ALL QUESTIONS ANSWERED.
[2021-07-30] MEDS: FLUCONAZOLE 100 mg/ NS 50 ML IV SCH (17:39)
[2021-07-30] MEDS: INSULIN GLARGINE 100 UNITS/ML 10 ML VIAL SUBCUT SCH (21:00)
[2021-07-31] VITALS (29 sets, daily range): BP systolic 129–169
[2021-07-31] MEDS: INSULIN REGULAR, HUMAN 100 UNITS/ML, 10 ML VIAL (humuLIN R) SUBCUT PRN ×5 (00:35→23:24)
[2021-07-31] MEDS: NORMAL SALINE 5 ML DISP.SYRIN IVF SCH ×3 (06:00→22:00)
--- NOTE | 2021-07-31 06:00 | NUR ---
--PT CONT. WITH ETT TO VENT. PT CHADWICK WELL WITH POX 100%. PT HAS MOD AMT OF THK PICKARD SPUT. LARGE AMT OF THK PICKARD SPUT. DIMINISH. BS. PT HAS BEEN UNRESPONSIVE/WITH DECORTICATE POSTURING. PT OPENS EYES OCCASS. ORAL CARE GIVEN. IV I/P VIA RIGHT FEMORAL-TLC. F/C I/P-1000CC YELL/CLR WITH SEDIMENT. PT HAS RECT. TUBE WITH 200CC OUT -BRN LIQ STOOL. BATH AND LINEN CHANGE DONE. AM LABS DONE. MD IN THIS AM TO SADIE PT. PT ENDORSED TO PAVEL VIEYRA IN STABLE BUT GUARDED COND. BERNARDO ZHAO
[2021-07-31 07:20] LABS: CREATININE 1.2 mg/dL (0.55-1.30); POTASSIUM 3.9 mmol/L (3.5-5.1)
[2021-07-31 07:36] LABS: BASOPHILS # (AUTO) 0.1 K/uL (0.0-0.2); BASOPHILS % (AUTO) 1.1 % (0.0-2.0); EOSINOPHILS # (AUTO) 0.3 K/uL (0.0-0.4); HEMATOCRIT 28.1 % (36-54); HEMOGLOBIN 9.2 g/dL (14.0-18.0); LYMPHOCYTES # (AUTO) 0.7 K/uL (1.0-5.5); LYMPHOCYTES % (AUTO) 11.3 % (20.5-51.5); MEAN CORPUSCULAR HEMOGLOBIN 26 pg (27-31); MEAN CORPUSCULAR HGB CONC 33 % (32-36); MEAN CORPUSCULAR VOLUME 79 fL (79.0-98.0); MONOCYTES # (AUTO) 0.5 K/uL (0.0-1.0); MONOCYTES % (AUTO) 7.2 % (1.7-9.3); NEUTROPHILS # (AUTO) 4.9 K/uL (1.8-7.7); NEUTROPHILS % (AUTO) 76.4 % (40.0-70.0); PLATELET COUNT (AUTO) 217 K/uL (130-430); RED BLOOD CELL COUNT(AUTO) 3.54 MIL/uL (4.2-6.2); RED CELL DISTRIBUTION WIDTH 16.4 % (9.0-15.0); WHITE BLOOD COUNT (AUTO) 6.4 K/uL (4.8-10.8)
--- NOTE | 2021-07-31 08:00 | NUR ---
PT IS NOW ON CPAP AND TOLERATING WELL/VS STABKLE THOUGH PT STILL NOT FOLLOWING COMMANDS, STILL POSTURING//MW
--- NOTE | 2021-07-31 08:00 | NUR ---
AZALIA LOU RN IS IN CHARGE OF THIS PATIENT/MW
--- NOTE | 2021-07-31 08:05 | NUR ---
RT NOTES Vent to CPAP 5 PS 10 per daily SBT. No adverse reactions noted. will monitor pt
[2021-07-31] MEDS: BALSAM PERU/CASTOR OIL 56.7 GM OINT...G. TP SCH (08:55)
[2021-07-31] MEDS: levETIRAcetam 1,000 MG in NS 100 ML IV SCH ×2 (09:31→21:00)
[2021-07-31] MEDS: PANTOPRAZOLE SODIUM 40 MG/VIAL (PROTONIX) IVP SCH ×2 (09:31→21:00)
[2021-07-31] MEDS: AMPICILLIN SODIUM/SULBACTAM NA 1.5 GM in NS 50 ML IV SCH ×2 (09:31→21:00)
[2021-07-31] MEDS: FERROUS SULFATE 325 MG TABLET.DR PO SCH ×2 (09:32→18:05)
--- NOTE | 2021-07-31 10:00 | NUR ---
PT STILL TOLERATING CPAP WELL AND IN ZERO DISTRESS//MW
--- NOTE | 2021-07-31 10:20 | NUR ---
RT NOTES Pt. cont. to tolerate CPAP well. Spont. Vt 458 RR 14 HR 83 SAT 99%. No distress noted.
[2021-07-31] MEDS: D5W 1,000 ML IV SCH (12:04)
[2021-07-31] MEDS: HEPARIN SODIUM,PORCINE 5,000 UNITS/ML VIAL SUBCUT SCH ×2 (14:01→22:04)
[2021-07-31] MEDS: FLUCONAZOLE 100 mg/ NS 50 ML IV SCH (18:05)
[2021-07-31] MEDS: INSULIN GLARGINE 100 UNITS/ML 10 ML VIAL SUBCUT SCH (21:00)
[2021-08-01] VITALS (29 sets, daily range): BP systolic 123–169
[2021-08-01] MEDS: D5W 1,000 ML IV SCH ×2 (02:42→19:00)
[2021-08-01] MEDS: NORMAL SALINE 5 ML DISP.SYRIN IVF SCH ×3 (06:00→22:00)
--- NOTE | 2021-08-01 06:00 | NUR ---
--PT CONT WITH ETT-VENT. POX 98-99%. PT CHADWICK SX AND RTX WELL. IV U/P VIA R.FEMORAL TLC. PT HAS BEEN UNRESPONSIVE WITH OCCASS. DECORTICATE POSTURING. PT'S DAUGHTER AND OTHER FAMILY MEMBERS HAVE BEEN AT BEDSIDE EARLIER IN SHIFT. F/C I/P-U/O ADEQ-900CC OUT. RECT. TUBE I/P-150CC OUT-LIQ BRN DIARRHEA. PARTIAL BATH AND AM CARE GIVEN. AM LABS DONE. VS HAVE BEEN STABLE. AFEBRILE. SR/NO ECTOPY. PT ENDORSED TO PAVEL DAMON IN STABLE/GUARDED COND. SROLANDA ZHAO
[2021-08-01 06:27] LABS: BASOPHILS % (AUTO) 0.6 % (0.0-2.0); EOSINOPHILS # (AUTO) 0.2 K/uL (0.0-0.4); EOSINOPHILS % (AUTO) 3.8 % (0.0-4.0); HEMATOCRIT 27.1 % (36-54); HEMOGLOBIN 8.9 g/dL (14.0-18.0); LYMPHOCYTES # (AUTO) 0.8 K/uL (1.0-5.5); LYMPHOCYTES % (AUTO) 12.8 % (20.5-51.5); MEAN CORPUSCULAR HEMOGLOBIN 26 pg (27-31); MEAN CORPUSCULAR HGB CONC 33 % (32-36); MEAN CORPUSCULAR VOLUME 79 fL (79.0-98.0); MONOCYTES # (AUTO) 0.4 K/uL (0.0-1.0); MONOCYTES % (AUTO) 6.5 % (1.7-9.3); NEUTROPHILS # (AUTO) 4.9 K/uL (1.8-7.7); NEUTROPHILS % (AUTO) 76.3 % (40.0-70.0); PLATELET COUNT (AUTO) 198 K/uL (130-430); RED BLOOD CELL COUNT(AUTO) 3.45 MIL/uL (4.2-6.2); RED CELL DISTRIBUTION WIDTH 15.9 % (9.0-15.0); WHITE BLOOD COUNT (AUTO) 6.4 K/uL (4.8-10.8)
[2021-08-01] MEDS: INSULIN REGULAR, HUMAN 100 UNITS/ML, 10 ML VIAL (humuLIN R) SUBCUT PRN ×2 (06:31→13:09)
[2021-08-01] MEDS: HEPARIN SODIUM,PORCINE 5,000 UNITS/ML VIAL SUBCUT SCH ×3 (06:33→22:00)
[2021-08-01] MEDS: FERROUS SULFATE 325 MG TABLET.DR PO SCH ×2 (08:05→18:00)
[2021-08-01] MEDS: AMPICILLIN SODIUM/SULBACTAM NA 1.5 GM in NS 50 ML IV SCH ×2 (08:33→21:00)
[2021-08-01] MEDS: PANTOPRAZOLE SODIUM 40 MG/VIAL (PROTONIX) IVP SCH ×2 (08:34→21:00)
[2021-08-01] MEDS: levETIRAcetam 1,000 MG in NS 100 ML IV SCH ×2 (08:35→21:00)
[2021-08-01] MEDS: BALSAM PERU/CASTOR OIL 56.7 GM OINT...G. TP SCH (08:35)
[2021-08-01] MEDS: FLUCONAZOLE 100 mg/ NS 50 ML IV SCH (18:00)
[2021-08-01] MEDS: INSULIN GLARGINE 100 UNITS/ML 10 ML VIAL SUBCUT SCH (21:00)
[2021-08-02] VITALS (16 sets, daily range): BP systolic 136–160
[2021-08-02] MEDS: NORMAL SALINE 5 ML DISP.SYRIN IVF SCH (06:00)
[2021-08-02] MEDS: HEPARIN SODIUM,PORCINE 5,000 UNITS/ML VIAL SUBCUT SCH (06:00)
--- NOTE | 2021-08-02 06:00 | NUR ---
--VS REMAIN STABLE EXCEPT TEMP UP TO 100.5F. TYLENOL AND COOLING DEE DONE. PT HAS BEEN ON CPAP ALL NIGHT. PT OPENS EYES OCCASS. EXTREMS ARE FLACCID. PT ENDORSED TO DAYSHIFT RN IN STABLE BUT GUARDED COND. SR. PT CHADWICK T.FEEDG WELL. U/O ADEQ-900CC. 200CC FROM RECTAL T. IV I/P VIA R.FEMORAL TLC. BERNARDO ZHAO
--- NOTE | 2021-08-02 07:20 | NUR ---
RECEIVED PT FROM PAVEL COCHRAN. PT IS OBTUNDED, NONRESPONSIVE TO PAINFUL STIMULI, PUPILS, EQUAL, 4MM SLUGGISH. BILATERALLY. FLACC=0. TELEMONITOR SHOWING NSR. ETT IN PLACE, TO VENT, PT ON CPAP5, PS 10, FIO2 30%. RESP E/U. LUNG SOUND CTA, DIMINISHED BILATERAL BASES. OGT IN PLACE WITH T/F TURNED OFF IN ANTICIPATION OF EXTUBATION AT 1000 TODAY. ABDOMEN SOFT, ROUND, NONDISTENDED. BOWEL SOUNDS ACTIVE X4 QUADS. PT HAS RECTAL TUBE IN PLACE DRAINING DARK BLACK SEIM-LIQUID STOOL. FLUSHED WITH 50CC WATER TO MAINTAIN PATENCY. DE LA TORRE CATH IN PLACE, PATENT, DRAINING CLEAR YELLOW URINE. PT STOVER R FEMORAL CENTRAL LINE, 3 LUMENS WITH D5W RUNNING AT 70ML/HOUR. FLACC=0.
[2021-08-02] MEDS: D5W 1,000 ML IV SCH (09:19)
[2021-08-02] MEDS: PANTOPRAZOLE SODIUM 40 MG/VIAL (PROTONIX) IVP SCH (09:20)
[2021-08-02] MEDS: FERROUS SULFATE 325 MG TABLET.DR PO SCH (09:20)
[2021-08-02] MEDS: AMPICILLIN SODIUM/SULBACTAM NA 1.5 GM in NS 50 ML IV SCH (09:21)
[2021-08-02] MEDS: INSULIN REGULAR, HUMAN 100 UNITS/ML, 10 ML VIAL (humuLIN R) SUBCUT PRN ×2 (09:22→12:36)
[2021-08-02] MEDS: levETIRAcetam 1,000 MG in NS 100 ML IV SCH (09:22)
[2021-08-02] MEDS: BALSAM PERU/CASTOR OIL 56.7 GM OINT...G. TP SCH (09:39)
[2021-08-02] MEDS ORDERED: MORPHINE SULFATE IN 0.9 % NACL 100 ML IV PRN (11:45)
[2021-08-02] MEDS ORDERED: NALOXONE HCL 0.4 MG/ML AMP (NARCAN) IVP PRN (11:45)
[2021-08-02 11:46] LABS: BASOPHILS % (AUTO) 0.5 % (0.0-2.0); EOSINOPHILS # (AUTO) 0.3 K/uL (0.0-0.4); EOSINOPHILS % (AUTO) 4.2 % (0.0-4.0); HEMATOCRIT 27.4 % (36-54); LYMPHOCYTES # (AUTO) 0.9 K/uL (1.0-5.5); MEAN CORPUSCULAR HEMOGLOBIN 26 pg (27-31); MEAN CORPUSCULAR HGB CONC 33 % (32-36); MEAN CORPUSCULAR VOLUME 78 fL (79.0-98.0); MONOCYTES # (AUTO) 0.5 K/uL (0.0-1.0); MONOCYTES % (AUTO) 6.5 % (1.7-9.3); NEUTROPHILS # (AUTO) 5.4 K/uL (1.8-7.7); NEUTROPHILS % (AUTO) 75.8 % (40.0-70.0); PLATELET COUNT (AUTO) 177 K/uL (130-430); RED CELL DISTRIBUTION WIDTH 16.1 % (9.0-15.0); WHITE BLOOD COUNT (AUTO) 7.1 K/uL (4.8-10.8)
--- NOTE | 2021-08-02 11:55 | NUR ---
PAVEL BRIGHT AND THIS RN BOTH VERIFIED FLOYD MEDINA THAT PT CODE STATUS WILL BE CHANGED TO DNR. PAVEL CLEMENT CHARGE MADE AWARE. PT WILL BE PLACED ON MORPHINE IV AND EXTUBATED.
[2021-08-02] MEDS ORDERED: ALBUMIN HUMAN 5% 250 ML IV ONE (12:00)
[2021-08-02] MEDS ORDERED: NOREPINEPHRINE BITARTRATE 8 MG in NS 242 ML IV PRN (12:00)
--- NOTE | 2021-08-02 12:44 | NUR ---
MORPHINE 1MG/HOUR INITIATED AT THIS TIME TO MAINTAIN COMFORT.
--- NOTE | 2021-08-02 13:30 | NUR ---
PT RR INCREASED TO 30BPM, MORPHINE INCREASED TO 2MG/HOUR. PT EXTUBATED AND PLACED ON 2LPM N/C. RR INCREASED TO 45 BPM, MORPHINE INCREASED TO 3MG/HOUR. FAMILY AT BEDSIDE.
--- NOTE | 2021-08-02 13:30 | NUR ---
RT NOTES Per order, extubated pt and placed on 2L nc for comfort. Almost immediately, pt desaturated to 70s, appears distressed after a few minutes of extubation, RN to provide medication for comfort.
--- NOTE | 2021-08-02 13:40 | NUR ---
PT GRUNTING, RR 36, MORPHINE INCREASED TO 4MG/HOUR.
--- NOTE | 2021-08-02 13:54 | NUR ---
PT AT THIS TIME. MORPHINE DRIP TURNED OFF. FAMILY AT BEDSIDE.
--- NOTE | 2021-08-02 13:58 | NUR ---
PT PRONOUNCED BY PAVEL BRIGHT AND THIS RN.
--- NOTE | 2021-08-02 14:14 | NUR ---
FAMILY LEFT BEDSIDE. DAUGHTER FLOYD TOOK ALL BELONGINGS AND SIGNED RELEASE FORM. FLOYD INFORMED TO CALL THE MORTUARY SHE HAS CHOSEN, [employer] CARROLL AND MAKE THEM AWARE TO SOCIAL MEDIA MARKETER THE BODY. FLOYD VERBALIZED UNDERSTANDING.
--- NOTE | 2021-08-02 14:18 | NUR ---
[facility] CALLED, SPOKE TO PILO, SHE STATED PT MAY BE RELEASED, Addendum: 08/02/21 at 1532 by Phu Sprague RN SPOKE TO LIZ
== END 2021-08-02 13:54 | DRG 720 ==
LOC: SED 23:28 → STU 07-18 04:33 → SIC 07-19 02:27
PROVIDERS: ADMIT Preventive Medicine Preventive Medicine/Occupational Environmental Medicine; ATTEND General Practice
PROC: 5A1955Z Respiratory Ventilation, Greater than 96 Consecutive Hours (ICD-10-PCS; principal; 2021-07-19)
PROC: 0BH17EZ Insertion of Endotracheal Airway into Trachea, Via Natural or Artificial Opening (ICD-10-PCS; 2021-07-19)
DX: A40.0 Sepsis due to streptococcus, group A (principal); J96.01 Acute respiratory failure with hypoxia; N17.0 Acute kidney failure with tubular necrosis; J69.0 Pneumonitis due to inhalation of food and vomit; R65.21 Severe sepsis with septic shock; I21.A1 Myocardial infarction type 2; G40.901 Epilepsy, unspecified, not intractable, with status epilepticus; G93.1 Anoxic brain damage, not elsewhere classified; K92.2 Gastrointestinal hemorrhage, unspecified; I46.9 Cardiac arrest, cause unspecified; E43 Unspecified severe protein-calorie malnutrition; I13.0 Hypertensive heart and chronic kidney disease with heart failure and stage 1 through stage 4 chronic kidney disease, or unspecified chronic kidney disease; Z20.822 Contact with and (suspected) exposure to COVID-19; I50.9 Heart failure, unspecified; E83.39 Other disorders of phosphorus metabolism; E83.41 Hypermagnesemia; E83.51 Hypocalcemia; E11.22 Type 2 diabetes mellitus with diabetic chronic kidney disease; L97.919 Non-pressure chronic ulcer of unspecified part of right lower leg with unspecified severity; L03.115 Cellulitis of right lower limb; D64.9 Anemia, unspecified; L03.116 Cellulitis of left lower limb; L97.929 Non-pressure chronic ulcer of unspecified part of left lower leg with unspecified severity; E11.65 Type 2 diabetes mellitus with hyperglycemia; E78.5 Hyperlipidemia, unspecified; E83.52 Hypercalcemia; E87.6 Hypokalemia; E88.09 Other disorders of plasma-protein metabolism, not elsewhere classified; K80.20 Calculus of gallbladder without cholecystitis without obstruction; K76.0 Fatty (change of) liver, not elsewhere classified; N18.9 Chronic kidney disease, unspecified; I42.9 Cardiomyopathy, unspecified; N39.0 Urinary tract infection, site not specified; Z99.11 Dependence on respirator [ventilator] status
CPT/HCPCS: 36415; 36600; 70450-TC; 71045; 76376; 76770; 76870-TC; 80048; 80053; 81000; 82272; 82803-TC; 82962; 83735; 83880; 84100; 84484; 85025; 85379; 85610-TC; 85651-TC; 85730-TC; 86140; 86738; 87040; 87070-TC; 87081; 87086; 87186-TC; 87205-TC; 92950; 93005; 93306; 94003; 94640; 95816; 96365; 96367; 99285; C9113; G0378; J0171; J0295; J0360; J0456; J0696; J1450; J1644; J1815; J1940; J1953; J2270; J2543; J2704; J3480; J3490; J7030; J7050; J7060; P9041